=== PATIENT | male | born 1960 | race Caucasian/White ===

== ENCOUNTER 2020-01-25 14:17 | Outpatient (REF) | payer BC, SELFPAY ==
--- NOTE | 2020-01-25 14:19 | XR_ITS ---
EXAMINATION: BILATERAL KNEE. CLINICAL INFORMATION: Knee pain. COMPARISON: None TECHNIQUE: 2 views right knee and 2 views left knee. FINDINGS: RIGHT KNEE: There is minimal loss of tricompartment joint space with periarticular spurring. There is anterior superior patellar enthesophyte and periarticular spurring. No abnormal joint effusion seen. LEFT KNEE: There is mild loss of tricompartment joint space with moderate sized anterior suprapatellar calcified. There is mild suprapatellar joint effusion. No loose bodies or bony erosive changes seen. XR/XR knee LT 2V IMPRESSION: Mild early degenerative changes involving both knees. No visible acute fracture, dislocation or subluxation.
--- NOTE | 2020-01-25 14:23 | XR_ITS ---
EXAMINATION: BILATERAL KNEE. CLINICAL INFORMATION: Knee pain. COMPARISON: None TECHNIQUE: 2 views right knee and 2 views left knee. FINDINGS: RIGHT KNEE: There is minimal loss of tricompartment joint space with periarticular spurring. There is anterior superior patellar enthesophyte and periarticular spurring. No abnormal joint effusion seen. LEFT KNEE: There is mild loss of tricompartment joint space with moderate sized anterior suprapatellar calcified. There is mild suprapatellar joint effusion. No loose bodies or bony erosive changes seen. XR/XR knee RT 2V IMPRESSION: Mild early degenerative changes involving both knees. No visible acute fracture, dislocation or subluxation.
== END 2020-01-25 14:18 | disposition home or self-care (01) ==
LOC: HO.XRAY 14:17
PROVIDERS: PCP Internal Medicine; Visit Provider Internal Medicine
DX: M25.562 Pain in left knee (principal); M25.561 Pain in right knee
CPT/HCPCS: 73560

== ENCOUNTER → 2020-02-12 14:01 | Outpatient (BNVA) | payer BC, SELFPAY | PROVIDERS: PCP Internal Medicine; Referring Provider Internal Medicine; Visit Provider Internal Medicine Cardiovascular Disease | DX: I25.10 Atherosclerotic heart disease of native coronary artery without angina pectoris (principal); I49.3 Ventricular premature depolarization | CPT/HCPCS: 93005 ==

== ENCOUNTER 2020-04-25 07:33 | Outpatient (REF) | payer BC, SELFPAY ==
[2020-04-25 08:18] LABS: MANUAL DIFF FLAG NO
[2020-04-25 08:25] LABS: Basophils Percent Auto 0.7 % (0-2); Eosinophils Absolute Auto 0.1 X10*3/uL (0.0-0.4); Eosinophils Percent Auto 3.1 % (0-4); Hemoglobin 16.1 g/dl (14.0-18.0); Imm Gran Abs Auto 0.03 X10*3/uL (0.00-0.03); Imm Gran Pct Auto 0.7 % (0.0-0.4); Lymphocytes Absolute Auto 0.9 X10*3/uL (1.2-4.9); Lymphocytes Percent Auto 21.3 % (20-40); Mean Corpuscular HGB Conc 33.5 g/dl (31.0-36.0); Mean Corpuscular Hemoglobin 29.2 pg (27.0-33.0); Mean Corpuscular Volume 87.1 fL (80-98); Mean Platelet Volume 10.8 fL (9.4-12.4); Monocytes Absolute Auto 0.4 X10*3/uL (0.1-1.2); Monocytes Percent Auto 8.6 % (2-11); Neutrophils Absolute Auto 2.7 X10*3/uL (2.0-8.3); Neutrophils Percent Auto 65.6 % (45-73); Platelet Count 226 X10*3/uL (160-400); Red Blood Count 5.51 X10*6/uL (4.60-5.80); Red Cell Distribution Width 13.4 % (11.0-16.0); White Blood Count 4.2 X10*3/uL (4.8-10.8)
[2020-04-25 09:32] LABS: Alanine Aminotransferase 48 U/L (0-40); Albumin Level 4.5 g/dL (3.5-5.0); Alkaline Phosphatase 74 U/L (39-117); Anion Gap 9 (12-20); Aspartate Amino Transferase 30 U/L (5-37); Bilirubin Total 1.6 mg/dL (0.0-1.0); Blood Urea Nitrogen 23 mg/dL (9-16); Carbon Dioxide 29 mmol/L (22-29); Chloride 107 mmol/L (96-108); Cholesterol 187 mg/dL; Estimated Glomerular Filt Rate > 60; Glucose Fasting 105 mg/dL (60-99); HDL Cholesterol 42 mg/dL; LDL Cholesterol Calculated 133 mg/dl; Potassium 4.3 mmol/l (3.3-5.1); Sodium 141 mmol/L (135-145); Total Protein 6.8 g/dL (6.5-8.0); Triglycerides 60 mg/dL
[2020-04-25 09:43] LABS: Thyroid Stimulating Hormone 0.89 uIU/mL (0.32-4.0)
== END 2020-04-25 07:34 | disposition home or self-care (01) ==
LOC: HO.LAB 07:33
PROVIDERS: PCP Internal Medicine; Visit Provider Internal Medicine
DX: Z00.00 Encounter for general adult medical examination without abnormal findings (principal); E11.9 Type 2 diabetes mellitus without complications; E03.9 Hypothyroidism, unspecified
CPT/HCPCS: 36415; 80053; 80061; 84443; 85025

== ENCOUNTER → 2020-05-05 11:46 | Outpatient (BNVA) | payer BC, SELFPAY | PROVIDERS: PCP Internal Medicine; Visit Provider Nurse Practitioner Family | DX: R00.2 Palpitations (principal); R07.89 Other chest pain; I25.10 Atherosclerotic heart disease of native coronary artery without angina pectoris; I49.3 Ventricular premature depolarization; E78.5 Hyperlipidemia, unspecified; G47.33 Obstructive sleep apnea (adult) (pediatric) | CPT/HCPCS: 93005 ==

== ENCOUNTER → 2020-05-06 09:58 | Outpatient (REF) | payer BC, SELFPAY ==
--- NOTE | 2020-05-07 11:39 | ECG_ITS ---
Hook-up date: 2020-05-06 11:12:00 Duration: 25:46:00 Test Indications: PALPITATIONS Medications: 93476 QRS complexes 664 Ventricular ectopics which represent <1 % of total QRS comp. 1 Supraventricular ectopics which represent <1 % of total QRS comp. * Paced QRS complexs which represent % of total QRS comp. VENTRICULAR ECTOPY 547 Isolated 20 Bigeminal Cycles 51 Couplets 3 Runs 15 Beats in Runs 8 Beats LONGEST at 73 BPM at 19:46:06 2020-05-06 3 Beats FASTEST at 129 BPM at 04:20:15 2020-05-07 SUPRAVENTRICULAR ECTOPY 1 Isolated 0 Couplets 0 Runs 0 Beats in Runs * Beats LONGEST at * BPM at :: -- * Beats FASTEST at * BPM at :: -- HEART RATES 48 MIN at 05:03:45 2020-05-07 66 AVG 106 MAX at 15:49:43 2020-05-06 LONGEST RR 1.3280 secs at 22:46:36 2020-05-06 S-T LEVELS Channel 1 - 128 mm at 11:12:00 2020-05-06 - 128 mm at 11:12:00 2020-05-06 Channel 2 - 128 mm at 11:12:00 2020-05-06 - 128 mm at 11:12:00 2020-05-06 Channel 3 - 128 mm at 03:03:11 -- - 128 mm at 03:03:11 Basic rhythm Normal sinus rhythm No long pause or profound bradycardia Occasional Premature ventricular complexes One 3 beat ning of NSVT at 129 bpm No diary submitted Referred By: Mecca Bowser Overread By: TIFF SURESH MD
== END ==
LOC: HO.CARD 09:58
PROVIDERS: PCP Internal Medicine; Visit Provider Nurse Practitioner Family
DX: R00.2 Palpitations (principal)
CPT/HCPCS: 93226

== ENCOUNTER → 2020-05-07 09:00 | Outpatient (REF) | payer BC, SELFPAY | LOC: HO.CARD 09:00 | PROVIDERS: PCP Internal Medicine; Visit Provider Orthopaedic Surgery | DX: M22.2X1 Patellofemoral disorders, right knee (principal); M22.2X2 Patellofemoral disorders, left knee; R00.2 Palpitations; I25.10 Atherosclerotic heart disease of native coronary artery without angina pectoris; I49.3 Ventricular premature depolarization; E78.5 Hyperlipidemia, unspecified; G47.33 Obstructive sleep apnea (adult) (pediatric); Z87.891 Personal history of nicotine dependence; Z88.8 Allergy status to other drugs, medicaments and biological substances; Z98.890 Other specified postprocedural states | CPT/HCPCS: 20610; J1040 ==

== ENCOUNTER → 2020-06-04 12:32 | Outpatient (REF) | payer BC, SELFPAY ==
--- NOTE | 2020-06-04 12:36 | CA_ITS ---
Transthoracic Echocardiogram Patient (Last, First, Middle): Marcin Ferrari J Gender: Male Date of : 1960 Age: 59 Procedure Date: 06/04/2020 Procedure Type: Transthoracic Echocardiogram Location: OP Height: 182.88 cm Weight: 98.88 kg BSA: 2.21 m2 Heart Rate: bpm BP: 124 / 80 mmHg Roll Former: ELIZABETH Referring MD: Mecca Bowser [employer] [facility] Otolaryngology Physician: Jered Marcos MD Symptoms: R00.2 - Palpitations Study Quality: Good ECG Rhythm: Sinus Conclusions: - 1. Normal LV systolic function with impaired relaxation filling pattern 2. Mild aortic regurgitation, with slightly increased gradient across aortic valve without clear aortic stenosis 3. Normal RV systolic pressure 4. No pericardial effusion Findings Left Ventricle Normal left ventricular size, thickness, and systolic function. The visually estimated ejection fraction is between 60-65%. Spectral Doppler is indicative of an impaired relaxation filling pattern. E/E prime ratio is between 8 and 15 consistent with indeterminate filling pressures. Right Ventricle Normal right ventricular cavity size and systolic function. Atria The left atrium is likely dilated. There is lipomatous hypertrophy of the interatrial septum. There is no evidence of interatrial shunt. The right atrium is normal in size. Aortic Valve The aortic valve was not well visualized. There is mild aortic valve regurgitation. Mildly increased gradient across the aortic valve, I did suggestive of higher stroke volume or subaortic obstruction. There is no clear evidence of aortic stenosis Mitral Valve Likely normal mitral valve structure and function. There is trace mitral valve regurgitation. There is no mitral valve stenosis. Pulmonic Valve The pulmonic valve was not well visualized. Tricuspid Valve Likely normal tricuspid valve structure and function. There is mild tricuspid valve regurgitation. The right ventricular systolic pressure is normal. The right ventricular systolic pressure is 38 mmHg. There is no evidence of pulmonary hypertension. Great Vessels All visible segments of the aorta are normal in size. The pulmonary artery was not well visualized. Venous The inferior vena cava is normal in size and collapses greater than 50% with inspiration. Pericardium/Pleural There is no evidence of pericardial effusion. Prior Study Comparison No prior study available for comparison. Measurements 2D Linear Measurements IVSd: 1.28 0.6-0.9/0.6-1.0 cm LVIDd: 3.94 3.9-5.3/4.2-5.9 cm LVIDd Index: 1.78 2.4-3.2/2.2-3.1 cm/m2 LVIDs: 2.52 2.0-3.6 cm LVPWd: 1.27 0.7-1.1 cm Ao Root: 3.00 2.1-3.5 cm LA Diam: 4.00 2.7-3.8/3.0-4.0 cm LAIDs Index: 1.81 1.5-2.3 cm/m2 LV Mass: 220.68 67-162/88-224 g LV Mass Index: 99.86 43-95/49-115 g/m2 LVOT Diam: 2.20 3.0+(-)1.3 cm Mitral Valve MV Pk E: 0.99 MV PK A: 1.04 MV Decel Time: 250.00 E/A: 0.90 E'Lateral: 10.30 E'Medial: 8.61 E/E' Med: 11.40 E/E' Lat: 9.60 PHT: 73.00 MVA PHT: 3.01 Decel Evans: 3.94 Aortic Valve AoV Pk Henry: 2.11 AoV Mn Henry: 1.36 AoV VTI: 0.41 AoV Pk Grad: 18.00 Aov Mn Grad: 9.00 BHUPINDER Cont.VTI: 2.99 LVOT LVOT Pk Henry: 1.55 LVOT Mn Henry: 0.97 LVOT VTI: 0.32 LVOT Pk Grad: 10.00 LVOT Mn Grad: 5.00 LVOT Diam: 2.20 LVOT Area: 3.80 Diastolic Function MV Pk E: 0.99 MV Pk A: 1.04 E/A: 0.90 E'Medial: 8.61 E/E' Med: 11.40 E' Laterial: 10.30 E/E' Lat: 9.60 Tricuspid Valve TR Pk Henry: 2.95 TR Pk Grad: 35.00 RA Press: 3.00 RVSP: 38.00 Great Vessels Aorta Ao Root-2D: 3.00 2.0-3.7 cm Pulmonary Valve PV Pk Henry: 1.25 Peak PV Grad: 6.00 Updated in Other Vendor System with Status of Final Jered Marcos MD electronically signed on 06/04/2020 4:12:58 PM with status of Final
== END ==
LOC: HO.CARD 12:32
PROVIDERS: Visit Provider Nurse Practitioner Family
DX: I25.10 Atherosclerotic heart disease of native coronary artery without angina pectoris (principal); R00.2 Palpitations
CPT/HCPCS: 93306

== ENCOUNTER → 2020-06-16 15:02 | Outpatient (BNVA) | payer BC, SELFPAY | PROVIDERS: PCP Internal Medicine; Visit Provider Internal Medicine Cardiovascular Disease ==

== ENCOUNTER → 2020-11-17 08:51 | Outpatient (BNVA) | payer SELFPAY | PROVIDERS: PCP Internal Medicine; Visit Provider Physician Assistant | DX: Z02.79 Encounter for issue of other medical certificate (principal) ==

== ENCOUNTER 2020-12-15 07:45 | Outpatient (REF) | payer BC, SELFPAY ==
[2020-12-15 09:42] LABS: Alanine Aminotransferase 31 U/L (0-40); Aspartate Amino Transferase 19 U/L (5-37); Cholesterol 137 mg/dL; HDL Cholesterol 48 mg/dL; LDL Cholesterol Calculated 71 mg/dl; Triglycerides 91 mg/dL
[2020-12-16 17:16] LABS: Lyme Abs Screen <0.90 index
== END 2020-12-15 07:46 | disposition home or self-care (01) ==
LOC: HO.LAB 07:45
PROVIDERS: Nurse Practitioner Family; PCP Internal Medicine; Visit Provider Nurse Practitioner Family
DX: E78.5 Hyperlipidemia, unspecified (principal); L98.9 Disorder of the skin and subcutaneous tissue, unspecified
CPT/HCPCS: 36415; 80061; 84450; 84460; 86617; 86618

== ENCOUNTER → 2020-12-25 15:20 | Outpatient (BNVA) | payer BC, SELFPAY | PROVIDERS: PCP Internal Medicine; Referring Provider Internal Medicine; Visit Provider Internal Medicine Cardiovascular Disease ==

== ENCOUNTER → 2021-02-04 15:17 | Outpatient (REF) | payer BC, SELFPAY ==
--- NOTE | 2021-02-04 15:20 | HM_ITS ---
Total monitoring time 13 days in 21 hours. Underlying rhythm is sinus. Minimum heart rate 45/Min. Maximum 118/Min. Average 68/Min. No atrial fibrillation or flutter or AV blocks or pauses. Rare supraventricular ectopy with minimal burden; 15 supraventricular episodes, longest 16 beats. Rare ventricular ectopy; 2 morphologies; 285 couplets; 13 episodes of NSVT; longest 32 beats-monomorphic. Patient reported symptoms of palpitations/skipping correlated with supraventricular/ventricular ectopy/NSVT. [facility]
== END ==
LOC: HO.CARD 15:17
PROVIDERS: Visit Provider Internal Medicine Cardiovascular Disease
DX: R00.2 Palpitations (principal)
CPT/HCPCS: 93246

== ENCOUNTER → 2021-06-09 09:43 | Outpatient (REF) | payer BC, SELFPAY ==
--- NOTE | 2021-06-09 09:49 | CA_ITS ---
Acquisition Time: 2021-06-09 10:13:50 Total Exercise Time: 00:08:21 Test Indications: CP, PVC'S Medications: SEE CHART Protocol: SANDHYA Max HR: 130 BPM 80% of Pred: 162 BPM Max BP: 164/084 mmHG Max Work Load: 10.1 METS Exercise stress test with exercise 8 min 21 sec of Sandhya protocol, achieving 80% MPHR, 10.1 METs, with moderate shortness of breath, no chest discomfort, with isolated PVC, multifocal occurring at rest, one 3 beat NSVT in recovery, with normotensive response to exercise, with EKG changes meeting criteria for ischemia: [address] depression inferiorly and V5-V6 which improves quickly in recovery. In recovery he reported mild chest heaviness which he related to his exercise and sob. Test reviewed with Dr Marcos Will order a pharmacological nuclear stress test for further evaluation. Referred By: Jered Marcos Overread By: JULIETA SALAZAR
[2021-06-09 09:59] LABS: MANUAL DIFF FLAG NO
[2021-06-09 10:30] LABS: Basophils Percent Auto 0.4 % (0-2); Eosinophils Absolute Auto 0.2 X10*3/uL (0.0-0.4); Hematocrit 50.3 % (42.0-52.0); Hemoglobin 16.8 g/dl (14.0-18.0); Imm Gran Abs Auto 0.05 X10*3/uL (0.00-0.03); Imm Gran Pct Auto 1.1 % (0.0-0.4); Lymphocytes Absolute Auto 1.3 X10*3/uL (1.2-4.9); Lymphocytes Percent Auto 27.5 % (20-40); Mean Corpuscular HGB Conc 33.4 g/dl (31.0-36.0); Mean Corpuscular Hemoglobin 29.7 pg (27.0-33.0); Mean Corpuscular Volume 88.9 fL (80.0-98.0); Mean Platelet Volume 10.9 fL (9.4-12.4); Monocytes Absolute Auto 0.4 X10*3/uL (0.1-1.2); Monocytes Percent Auto 8.9 % (2-11); Neutrophils Absolute Auto 2.8 x10*3/uL (2.0-8.3); Neutrophils Percent Auto 58.1 % (45-73); Platelet Count 236 X10*3/uL (160-400); Red Blood Count 5.66 X10*6/uL (4.60-5.80); Red Cell Distribution Width 12.8 % (11.0-16.0); White Blood Count 4.7 X10*3/uL (4.8-10.8)
[2021-06-09 11:10] LABS: Alanine Aminotransferase 35 U/L (0-40); Albumin Level 4.6 g/dL (3.5-5.0); Alkaline Phosphatase 76 U/L (39-117); Anion Gap 13 (12-20); Aspartate Amino Transferase 23 U/L (5-37); Bilirubin Total 1.7 mg/dL (0.0-1.0); Blood Urea Nitrogen 16 mg/dL (9-16); Carbon Dioxide 27 mmol/L (22-29); Chloride 106 mmol/L (96-108); Cholesterol 155 mg/dL; Estimated Glomerular Filt Rate > 60; Glucose Fasting 108 mg/dL (60-99); HDL Cholesterol 40 mg/dL; LDL Cholesterol Calculated 96 mg/dl; Potassium 5.4 mmol/L (3.3-5.1); Sodium 141 mmol/L (135-145); Total Protein 7.1 g/dL (6.5-8.0); Triglycerides 96 mg/dL
[2021-06-09 11:13] LABS: Thyroid Stimulating Hormone 1.11 uIU/mL (0.32-4.0)
== END ==
LOC: HO.CARD 09:43
PROVIDERS: Absent Provider Internal Medicine; PCP Internal Medicine; Visit Provider Internal Medicine Cardiovascular Disease
DX: Z00.00 Encounter for general adult medical examination without abnormal findings (principal); Z13.0 Encounter for screening for diseases of the blood and blood-forming organs and certain disorders involving the immune mechanism; R00.2 Palpitations; M22.2X1 Patellofemoral disorders, right knee; M22.2X2 Patellofemoral disorders, left knee
CPT/HCPCS: 36415; 80053; 80061; 84443; 85025; 93017

== ENCOUNTER → 2021-06-29 15:06 | Outpatient (REF) | payer BC, SELFPAY ==
--- NOTE | 2021-06-29 15:09 | CA_ITS ---
Acquisition Time: 2021-06-29 15:25:23 Total Exercise Time: 00:08:54 Test Indications: Abnormal Treadmill Test Medications: METOPROLOL ATORVASTATIN TADALAFIL Protocol: SANDHYA Max HR: 139 BPM 85% of Pred: 162 BPM Max BP: 148/078 mmHG Max Work Load: 10.3 METS Exercise stress test with exercise 8 min 54 sec of Sandhya protocol, achieving 85%, 10.1 METs, with mild to moderate shortness of breath, knee pain, without chest discomfort, with isolated PVCs and 2 ventricular cuplets noted in recovery, with baseline EKG showing downsloping ST segements in leads III, aVF, V5-V6, then with exercise/ peak there is [address] depression lead II and the same downsloping ST segments as baseline: nondiagnostic for ischemia. same leads as baseline. Echo images obtain at rest and immediately post peak exercise. Definity contrast used. Test reviewed with Dr Marcos. STRESS ECHO : Technique : Images obtained at rest and immediately post exercise within 1 minute. Definity contrast was used to enhance endocardial definition. Images were obtained in multiple views and compared side to side. Findings : At rest images were of good quality. LV systolic function is normal with normal wall motion. Post exercise image interpretation was limited due to off axis views. On multiple different views there good augmentation of overall LV systolic function. There are no obvious regional wall motion abnormalities noted. Conclusion : Stress echo is negative for ischemia Referred By: Mecca Bowser Overread By: TIFF MARCOS MD
== END ==
LOC: HO.CARD 15:06
PROVIDERS: PCP Internal Medicine; Visit Provider Nurse Practitioner Family
DX: R94.30 Abnormal result of cardiovascular function study, unspecified (principal); I49.3 Ventricular premature depolarization
CPT/HCPCS: 93350; Q9957

== ENCOUNTER 2021-09-18 10:51 | Outpatient (REF) | payer BC, SELFPAY ==
--- NOTE | ~2021-09-18 | XR_ITS ---
EXAMINATION: XR KNEE, LEFT CLINICAL INFORMATION: Knee pain COMPARISON: Radiographs left knee 01/25/2020 TECHNIQUE: Four views of the left knee. FINDINGS: No fracture, dislocation, destructive process, or suprapatellar effusion. No medial or lateral weightbearing compartment joint narrowing or erosive change or chondrocalcinosis. There is mild narrowing lateral patellofemoral joint. Spurring is again seen in the quadriceps insertion patella. There is some benign chronic periosteal ossification lower posterior femoral shaft approximately 2 cm in length similar to prior exam. No periostitis. XR/XR knee LT 4V IMPRESSION: -Mild narrowing lateral patellofemoral joint. -Spurring at quadriceps insertion patella.
== END 2021-09-18 10:52 | disposition home or self-care (01) ==
LOC: HO.XRAY 10:51
PROVIDERS: PCP Internal Medicine; Visit Provider Internal Medicine
DX: M25.562 Pain in left knee (principal)
CPT/HCPCS: 73564

== ENCOUNTER → 2021-10-12 10:28 | Outpatient (BNVA) | payer SELFPAY | PROVIDERS: PCP Internal Medicine; Visit Provider Physician Assistant Medical | DX: Z02.79 Encounter for issue of other medical certificate (principal) ==

== ENCOUNTER 2021-10-19 08:08 | Outpatient (REF) | payer SELFPAY | END 2021-10-19 08:09 | disposition home or self-care (01) | LOC: HO.HOSX 08:08 | PROVIDERS: Visit Provider Physician Assistant | DX: Z13.89 Encounter for screening for other disorder (principal) ==

== ENCOUNTER 2021-10-20 12:56 | Outpatient (REF) | payer OTHER, SELFPAY ==
--- NOTE | ~2021-10-20 | XR_ITS ---
EXAMINATION: XR KNEE AP STANDING CLINICAL INFORMATION: Knee pain COMPARISON: 09/18/2021 TECHNIQUE: AP bilateral standing view of the knees was obtained. FINDINGS: Left knee: No fracture or subluxation. Medial and lateral compartmental joint spaces are maintained. The soft tissues are unremarkable. Right knee: No fracture or subluxation. Mild narrowing at the medial compartment joint space. The soft tissues are unremarkable. XR/XR knee standing BI IMPRESSION: Unremarkable appearance of the left knee on this single view. Mild medial compartment narrowing of the right knee.
== END 2021-10-20 12:57 | disposition home or self-care (01) ==
LOC: HO.HOSX 12:56
PROVIDERS: Visit Provider Physician Assistant
DX: M25.561 Pain in right knee (principal); M25.562 Pain in left knee
CPT/HCPCS: 73565

== ENCOUNTER 2021-11-10 17:53 | Outpatient (REF) | payer OTHER, SELFPAY ==
--- NOTE | ~2021-11-10 | MR_ITS ---
EXAMINATION: MR KNEE WITHOUT CONTRAST, LEFT CLINICAL INFORMATION: Intermittent left knee pain. Evaluate for meniscal tear. COMPARISON: None TECHNIQUE: MRI of the knee without contrast was performed using routine sequences on a high-field scanner. FINDINGS: MENISCI: Medial Meniscus: Complete radial tear of the posterior meniscal body measuring 0.6 cm in AP dimension. Oblique inner margin tearing extending through the posterior horn. Lateral Meniscus: Inner margin fraying/tearing of the meniscal body and posterior root. LIGAMENTS: Cruciate: Intact Collateral: Intact EXTENSOR MECHANISM: Intact ARTICULAR CARTILAGE/BONE: Patellofemoral Compartment: Full thickness articular cartilage fissuring at the patellar median ridge with underlying subchondral cystic change. Central trochlear articular cartilage signal heterogeneity. Tiny marginal osteophytes. Medial Compartment: Intact articular cartilage. Marrow edema within the medial tibial plateau consistent with an osseous contusion. No associated fracture line. Mild periosteal edema. Lateral Compartment: Articular cartilage signal heterogeneity and surface irregularity with tiny marginal osteophytes. JOINT FLUID AND BURSAE: Small joint effusion. MR/MR knee LT wo con IMPRESSION: 1. Complete radial tear of the medial meniscus posterior body with oblique inner margin tearing extending to the posterior horn. 2. Inner margin fraying/tearing of the lateral meniscal body and posterior root. 3. Mild osseous contusion within the medial tibial plateau. No associated fracture line. 4. Mild patellofemoral and lateral compartment osteoarthritis. Small joint effusion.
== END 2021-11-10 17:54 | disposition home or self-care (01) ==
LOC: HO.MRI 17:53
PROVIDERS: Visit Provider Physician Assistant
DX: S83.242A Other tear of medial meniscus, current injury, left knee, initial encounter (principal)
CPT/HCPCS: 73721

== ENCOUNTER 2021-12-09 10:03 | Day surgery (SDC) | payer OTHER, SELFPAY ==
[2021-12-03 14:45] VITALS: BMI 29.8
[2021-12-09] VITALS (11 sets, daily range): BP systolic 90–151; BP diastolic 50–78; PULSE 59–78; RESP 14–30; TEMP 36.1–36.5; O2SAT 96–99
[2021-12-09] MEDS: Lactated Ringers 1,000 ML 50 ML IVCONT (10:32)
--- NOTE | 2021-12-09 11:15 | MHC.SHP ---
Pre-Procedural Eval Section A Date of Service: 12/09/21 The patient is an INPATIENT: No Changes since office visit: Yes Patient answered all questions; No Cold of Flu in the past 2 weeks, No New Medical Problems and No Changes in Medication The History & Physical has been completed within 30 days and I have reviewed it.: Yes Section B Chief Complaint: Complex tear of medial meniscus, current injury, Allergies: Allergies Allergy/AdvReac Type Severity Reaction Status Date / Time naproxen [Aleve] Allergy Unknown itchiness Verified 12/09/21 10:19 Plan I have reviewed the history and physical and performed a pertinent physical examination on my patient. No changes have occurred unless specified.
--- NOTE | 2021-12-09 12:17 | HO.ANESPROP2 ---
HPI - Anesthesia Eval Consult details Narrative: 60 M for left knee arthroscopy stress test unremarkable for ischemia FRANCHESCA PMF Active Problems Active Problems: All Active Problems (Updated 11/11/21 @ 10:14 by José Unger MD) Acute meniscal tear of left knee (Acute) Tear of medial meniscus of left knee (Acute) Knee pain (Acute) Ventricular ectopy (Acute) Abnormal exercise tolerance test (Acute) Obesity (Acute) Hypertension (Acute) Skin lesion (Acute) Cluster headache (Acute) Patellofemoral pain syndrome of both knees (Acute) Chest discomfort (Acute) Palpitations (Acute) Physical exam (Acute) CAD (coronary artery disease) (Acute) PVC (premature ventricular contraction) (Acute) Hyperlipidemia (Acute) FRANCHESCA (obstructive sleep apnea) (Acute) Nail fungus (Acute) Knee pain (Acute) Past Medical History Medical History CAD (coronary artery disease) Cluster headache Hyperlipidemia Hypertension Obesity FRANCHESCA (obstructive sleep apnea) PVC (premature ventricular contraction) Skin lesion Functional capacity: independent ambulation Family History Family History Father Myocardial infarction Substance abuse Mother No problems noted. Family history of problems with anesthesia: No Surgical History Surgical History History of laminectomy History of removal of cyst Hx of cardiac catheterization History of Problems with Anesthesia: No Social History Social History Housing: House Alcohol intake: never Patient Tobacco Use Status: Former Tobacco user e-Cigarette/Vaping Use: Never Used Second Hand Smoke Exposure: No service: No Current occupational status: employed Cognitive needs: No Hearing needs: No Vision needs: No Meds Allergies Allergy/AdvReac Type Severity Reaction Status Date / Time naproxen [Aleve] Allergy Unknown itchiness Verified 12/09/21 10:19 Active Medications: Current Medications Lactated Ringer's (Lr) 1,000 mls @ 50 mls/hr IVCONT .Q20H OJ Last Admin: 12/09/21 10:32 Dose: 50 mls/hr Exam Exam Date and Time: December 09, 2021 1217 Height,Weight and Vital Signs: Height 6 ft Weight 99.79 kg Last Vital Signs Temp 97 F 12/09/21 10:08 Pulse 78 12/09/21 10:08 Resp 18 12/09/21 10:08 BP 151/78 H 12/09/21 10:08 Pulse Ox 96 12/09/21 10:08 O2 Del Method 12/09/21 10:08 Airway Mallampati Class: III TM Dist: >3cm Neck ROM: Full Loose/Missing/Broken Teeth: Yes (Chipped teeth) Heart: S1,S2 Lungs: b/l breath sounds Assessment and Plan Assessment Anesthesia Assessment: Anesthesia Plan Discussed and Chart Reviewed Final Anesthetic Review Family History of Problems with Anesthesia: No History of Problems with Anesthesia: No NPO: Yes ASA Class: III Final Preanesthetic Review: Meds/Allgs Chart Reviewed, Consent Obtained/Reviewed and Anes Risks/Benef Reviewed Patient Risk: Intermediate Procedure Risk: Intermediate Anesthetic Plan Anesthetic Plan: GA Disposition: Standard PACU
--- NOTE | 2021-12-09 13:13 | P.OP_ITS ---
Operative Note Operative Note Date of Service: 12/09/21 Narrative: Date of Service: 12/09/21 Pre-op diagnosis: Left knee medial meniscus tear Post-op diagnosis: same Procedure: Left knee with partial medial meniscectomy Surgeon: Ray Stubbs MD Anesthesia: GETA and local Was an Fruit Thinner Machine Operator used for this Procedure?: No Estimated blood loss (mL): 5 Tourniquet time (min): 15 IV fluids (mL): 500 Pathology: none sent Condition: stable Disposition: PACU Procedure in detail: Patient was brought to the operating room placed supine on the arthroscopic table and prepped and draped in standard sterile fashion. A time-out was called to identify proper site proper procedure proper surgeon and IV antibiotics per weight were administered. I began by exsanguinating the limb and insufflating tourniquet to 300 mm Hg. Then made a standard anterolateral stab incision. The knee was insufflated with water and 30 degree arthroscope was placed. There was grade 1 fibrillations of the patella but overall suprapatellar pouch was plane and the gutters were clean. I descended into the medial compartment where I made my medial portal under direct visualization. There was obvious of complex tear of the body and posterior horn of the medial meniscus. The root was intact and there was grade 1 changes with some scattered grade 2 changes throughout the medial tibial plateau. I used a combination of biter shaver and cautery to remove unstable portions of the meniscus. Appoximatelly 40% meniscal volume was removed. Once I was happy with this the ACL was examined and found to be intact and the lateral compartment also was without the need for intervention. I then removed all instrumentation and closed the portals with skin glue. 25 mL of 2% Marcaine with epinephrine was injected into the joint and the surrounding soft tissues. Patient was then placed in sterile dressing extubated brought recovery room stable condition. There were no known complications.
[2021-12-09] MEDS: Acetaminophen 325 MG TABLET 650 MG PO (13:38)
[2021-12-09] MEDS: fentaNYL citrate/PF 100 MCG/2 ML VIAL 25 MCG IVPUSH (13:45)
[2021-12-09] MEDS: HYDROmorphone HCl 0.5 MG/0.5 ML SYRINGE 0.25 MG IVPUSH (13:58)
[2021-12-09] MEDS: oxyCODONE HCl Immed Release 5 MG TABLET PO (14:13)
== END 2021-12-09 15:37 | disposition home or self-care (01) ==
PROVIDERS: PCP Internal Medicine; Visit Provider Orthopaedic Surgery
PROC: (CPT 29870; principal; 2021-12-09 12:50)
DX: S83.232A Complex tear of medial meniscus, current injury, left knee, initial encounter (principal); R20.8 Other disturbances of skin sensation; M62.562 Muscle wasting and atrophy, not elsewhere classified, left lower leg; M96.1 Postlaminectomy syndrome, not elsewhere classified; W18.39XA Other fall on same level, initial encounter; Y93.01 Activity, walking, marching and hiking; Y92.89 Other specified places as the place of occurrence of the external cause; Y99.8 Other external cause status; Z88.8 Allergy status to other drugs, medicaments and biological substances; I10 Essential (primary) hypertension; I25.10 Atherosclerotic heart disease of native coronary artery without angina pectoris; I49.3 Ventricular premature depolarization; G47.33 Obstructive sleep apnea (adult) (pediatric); E78.5 Hyperlipidemia, unspecified; G44.009 Cluster headache syndrome, unspecified, not intractable; Z87.891 Personal history of nicotine dependence
CPT/HCPCS: 29881; J0690; J1100; J1170; J2250; J2405; J2795; J3010

== ENCOUNTER 2022-03-15 13:22 | Outpatient (REF) | payer OTHER, SELFPAY ==
[2022-03-23 14:59] LABS: Testosterone, Free 50.5 pg/mL (35.0-155.0); Testosterone, Total 339 ng/dL (250-1100)
== END 2022-03-15 13:23 | disposition home or self-care (01) ==
LOC: HO.LAB 13:22
PROVIDERS: PCP Internal Medicine; Visit Provider Internal Medicine
DX: R68.82 Decreased libido (principal)
CPT/HCPCS: 36415; 84402; 84403

== ENCOUNTER → 2022-08-16 15:19 | Outpatient (BNVA) | payer OTHER, SELFPAY | PROVIDERS: PCP Internal Medicine; Visit Provider Nurse Practitioner Family | DX: R00.2 Palpitations (principal) | CPT/HCPCS: 93005 ==

== ENCOUNTER → 2022-08-24 14:48 | Outpatient (REF) | payer OTHER, SELFPAY ==
--- NOTE | 2022-08-24 14:55 | HM_ITS ---
Conclusion: 1. Patient was monitored for total period of 3 days 2. Baseline was normal sinus with average heart of 66 beats per minute 3. No significant pauses noted 4. Frequent PVCs noted with total burden of 1.25%, all isolated 5. No patient reported symptoms MTDD
== END ==
LOC: HO.CARD 14:48
PROVIDERS: PCP Internal Medicine; Visit Provider Nurse Practitioner Family
DX: I49.3 Ventricular premature depolarization (principal); R00.2 Palpitations; I49.1 Atrial premature depolarization
CPT/HCPCS: 93242

== ENCOUNTER → 2022-09-21 15:45 | Outpatient (REF) | payer OTHER, SELFPAY ==
--- NOTE | 2022-09-21 15:47 | CA_ITS ---
Transthoracic Echocardiogram Patient (Last, First, Middle): Marcin Ferrari J Gender: Male Date of : 1960 Age: 61 Procedure Date: 09/21/2022 Procedure Type: Transthoracic Echocardiogram Location: OP Height: 182.88 cm Weight: 103.42 kg BSA: 2.25 m2 Heart Rate: bpm BP: 130 / 72 mmHg Proofer: ALAN Referring MD: Mecca Bowser SHOP BLACKSMITHBrea Symptoms: I49.3 - Ventricular premature depolarization Study Quality: Fair ECG Rhythm: Sinus Conclusions: - The left ventricular systolic function is normal. The calculated ejection fraction is 65% by biplane method. - The inferoseptal wall, the basal inferior, and basal anteroseptal segments are hypokinetic. - There is mild aortic valve regurgitation. Findings Left Ventricle Normal left ventricular cavity size. There is mildly increased left ventricular wall thickness. The left ventricular systolic function is normal. The calculated ejection fraction is 65% by biplane method. There is no evidence of regional wall motion abnormalities. Diastolic function is normal for age. LV peak GLS -18%. Wall Motion Rest Echo Findings The inferoseptal wall, the basal inferior, and basal anteroseptal segments are hypokinetic. Atria The left atrium is mildly dilated. The right atrium is normal in size. Aortic Valve There is a normal trileaflet aortic valve. There is no aortic valve stenosis. There is mild aortic valve regurgitation. Mitral Valve The mitral valve appears normal. There is trace mitral valve regurgitation. There is no mitral valve stenosis. Pulmonic Valve The pulmonic valve is likely normal. Tricuspid Valve There is mild tricuspid valve regurgitation. There is no evidence of pulmonary hypertension. Great Vessels The asc aorta is normal in size. Venous The inferior vena cava is normal in size and collapses greater than 50% with inspiration. Pericardium/Pleural There is no evidence of pericardial effusion. Prior Study Comparison Changes noted compared to prior study dated: 06/04/2020. see comment on wall motion. Measurements 2D Linear Measurements IVSd: 1.26 0.6-0.9/0.6-1.0 cm LVIDd: 4.72 3.9-5.3/4.2-5.9 cm LVIDd Index: 2.10 2.4-3.2/2.2-3.1 cm/m2 LVIDs: 3.07 2.0-3.6 cm LVPWd: 1.19 0.7-1.1 cm LA Diam: 3.30 2.7-3.8/3.0-4.0 cm LAIDs Index: 1.47 1.5-2.3 cm/m2 LV Mass: 273.99 67-162/88-224 g LV Mass Index: 121.77 43-95/49-115 g/m2 LVOT Diam: 2.10 3.0+(-)1.3 cm 2D Systolic Function EF 4C: 65.50 >55% EF 2C: 64.80 >55% EF BiP: 65.00 >55% Mitral Valve MV Pk E: 0.87 MV PK A: 0.96 MV Decel Time: 318.00 E/A: 0.90 E'Lateral: 9.90 E'Medial: 6.20 E/E' Med: 14.00 E/E' Lat: 8.70 PHT: 93.00 MVA PHT: 2.37 Decel Frontier: 2.72 Aortic Valve AoV Pk Henry: 1.96 AoV Mn Henry: 1.31 AoV VTI: 0.41 AoV Pk Grad: 15.00 Aov Mn Grad: 8.00 BHUPINDER Cont.VTI: 2.60 AI Pk Henry: 4.06 AI Frontier: 1.86 LVOT LVOT Pk Henry: 1.41 LVOT Mn Henry: 0.86 LVOT VTI: 0.31 LVOT Pk Grad: 8.00 LVOT Mn Grad: 4.00 LVOT Diam: 2.10 LVOT Area: 3.46 Diastolic Function MV Pk E: 0.87 MV Pk A: 0.96 E/A: 0.90 E'Medial: 6.20 E/E' Med: 14.00 E' Laterial: 9.90 E/E' Lat: 8.70 Right Ventricle TAPSE (mm): 23.30 TVS' Henry: 14.00 Tricuspid Valve TR Pk Henry: 2.67 TR Pk Grad: 29.00 RA Press: 3.00 RVSP: 32.00 Great Vessels Aorta Sinus of Valsalva: 3.43 2.0-3.[address] Ridge: 2.66 1.7-3.4 cm Ao Asc: 3.10 2.1-3.4 cm Updated in Other Vendor System with Status of Final Sandeep Zacarias MD electronically signed on 09/22/2022 9:44:28 AM with status of Final
== END ==
LOC: HO.CARD 15:45
PROVIDERS: PCP Internal Medicine; Visit Provider Nurse Practitioner Family
DX: I49.3 Ventricular premature depolarization (principal)
CPT/HCPCS: 93306; 93356

== ENCOUNTER → 2022-10-11 14:37 | Outpatient (BNVA) | payer SELFPAY | PROVIDERS: PCP Internal Medicine; Visit Provider Internal Medicine | DX: Z02.79 Encounter for issue of other medical certificate (principal) ==

== ENCOUNTER → 2022-10-18 07:55 | Outpatient (REF) | payer OTHER, SELFPAY ==
--- NOTE | ~2022-10-18 | NM_ITS ---
EXERCISE MYOCARDIAL PERFUSION STUDY INDICATION: PVCs, assess for coronary disease, ischemia TECHNIQUE: The patient was brought in for an exercise perfusion study on 10/18/2022. Patient performed exercise as per Oren protocol and was injected 25 mCi of sestamibi once target heart rate was achieved. Images were obtained using the SPECT gamma camera interlaced with the gating device. Images were obtained in supine position. Resting perfusion study was performed on 10/19/2022. Patient was administered 25 mCi of sestamibi intravenously at rest. Images were then obtained in supine position. Images were processed with the software and compared side to side in short axis, horizontal long axis and vertical long axis views. Total DLP 118mGy-cm. FINDINGS: Raw images were reviewed. The stress perfusion study showed mildly diminished tracer uptake in the basal part of inferior wall. There is improvement with CT attenuation correction suggestive of diaphragmatic attenuation artifact. There is also depressed tracer uptake in the distal part of anterior wall. There is improvement with CT attenuation suggestive of soft tissue attenuation artifact. The gated study shows normal LV systolic function with calculated LVEF of 64%. LV cavity is normal in size. The gated study shows basal inferior hypokinesis. Resting study shows mildly diminished tracer uptake along the basal inferior wall. There is improvement with CT attenuation correction suggestive of soft tissue attenuation artifact. Gating at rest reveals ejection fraction at 63%. Basal inferior hypokinesis. The findings are consistent with fixed basal inferior defect. Mostly reversible distal anterior defect. NM/NM cardiolite stress test IMPRESSION: 1. Myocardial perfusion imaging study shows fixed basal inferior defect which could be from prior infarct. Cannot exclude diaphragmatic attenuation artifact. Probable ischemia in the distal anterior wall. 2. Gated LVEF is 64% during stress and 63% during rest. 3. Transient ischemic dilatation not present. EKG component of the test reported separately.
--- NOTE | 2022-10-18 07:58 | CA_ITS ---
Acquisition Time: 2022-10-18 07:59:22 Total Exercise Time: 00:11:00 Test Indications: ABN ECHO Medications: METOPROLOL Protocol: OREN Max HR: 133 BPM 82% of Pred: 161 BPM Max BP: 184/078 mmHG Max Work Load: 10.6 METS Exercise stress test exercise 11 min of Oren protocol achieving 82% MPHR, with 3/10 chest heaviness, with mild SOB, with isolated PVCs, with normotensive response to exercise, with downsloping ST depressions in V5-V6 . Nuclear images pending. Chest resolved with rest. Test reviewed with Hemant Waldron. Referred By: Mecca Bowser Overread By: ALDA DAVEY
== END ==
LOC: HO.CARD 07:55
PROVIDERS: PCP Internal Medicine; Visit Provider Nurse Practitioner Family
DX: I25.10 Atherosclerotic heart disease of native coronary artery without angina pectoris (principal); R93.1 Abnormal findings on diagnostic imaging of heart and coronary circulation
CPT/HCPCS: 78452; 93017; A9500

== ENCOUNTER → 2022-10-18 08:02 | Outpatient (BNV) | payer OTHER, SELFPAY | PROVIDERS: PCP Internal Medicine; Visit Provider Internal Medicine | DX: R07.89 Other chest pain (principal) | CPT/HCPCS: 78452; 93016; 93018 ==

== ENCOUNTER → 2022-11-16 15:08 | Outpatient (BNVA) | payer OTHER, SELFPAY | PROVIDERS: PCP Internal Medicine; Referring Provider Internal Medicine; Visit Provider Internal Medicine Cardiovascular Disease ==

== ENCOUNTER 2023-05-23 13:35 | Outpatient (AMB) | payer OTHER, SELFPAY ==
--- NOTE | 2023-05-23 13:36 | MHC.PC.OV ---
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 Accompanied by: Self / Same As Patient Allergies naproxen [Aleve] Allergy (Unknown, Verified 05/23/23 13:37) itchiness Tobacco use date assessed: 05/23/23 Dental Screening Dental Screen Date: 05/23/23 Did you have a dental visit in the last 12 months?: Yes Did you have a dental problem in the last 6 months where you did not have access to dental care?: No Was dental information given to patient?: Patient has dentist HPI Annual Exam HPI Details HTN on Rx; has right shoulder pain for a few weeks; no injury PFSH Medical History CAD (coronary artery disease) Cluster headache Hyperlipidemia Hypertension Obesity FRANCHESCA (obstructive sleep apnea) PVC (premature ventricular contraction) Skin lesion Surgical History Hx of cardiac catheterization History of laminectomy History of removal of cyst Family History Father Myocardial infarction Substance abuse Mother No problems noted. Social History Housing: House Alcohol intake: never Patient Tobacco Use Status: Never used Tobacco e-Cigarette/Vaping Use: Never Used Second Hand Smoke Exposure: No service: No Current occupational status: employed Cognitive needs: No Hearing needs: No Vision needs: No Questionnaire PHQ-9 Over the last 2 weeks, how often have you been bothered by any of the following problems? 1. Little interest or pleasure in doing things: not at all 2. Feeling down, depressed, or hopeless: not at all 3. Trouble falling or staying asleep, or sleeping too much: not at all 4. Feeling tired or having little energy: not at all 5. Poor appetite or overeating: not at all 6. Feeling bad about yourself - or that you are a failure or have let yourself or your family down: not at all 7. Trouble concentrating on things, such as reading the newspaper or watching television: not at all 8. Moving or speaking so slowly that other people could have noticed. Or the opposite - being so fidgety or restless that you have been moving around a lot more than usual: not at all 9. Thoughts that you would be better off or of hurting yourself in some way: not at all Total score: 0 Depression Screening Interpretation: Negative Depression Screening Done: Yes 17640 - PHQ-9 Billing: Yes Source: Developed by Drs. Jorgito Rodgers, Liliana Medeiros, Manolo Lyn and colleagues, with an educational diego from [employer]. Thrive Questionnaire Date Thrive assessed: 05/23/23 I am a: Patient What is your living situation today?: I have a steady place to live Within the past 12 months, did the food you bought not last and you didn't have the money to get more?: Never true Within the past 12 months, did you worry whether your food would run out before you got money to buy more?: Never true Do you have trouble paying for medicines?: No Do you have trouble getting transportation to medical appointments?: No Do you have trouble paying your heating and electricity bill?: No Do you have trouble taking care of your child, family member or friend?: No Do you have trouble with day-to-day activities such as bathing, preparing meals, shopping, managing finances, etc.?: No Are you currently unemployed and looking for a job?: No Are you interested in more education?: No Please select the resources that you would like help with: None THRIVE Score: 0 AUDIT C Alcohol Use Questionnaire (AUDIT-C) 1. How often do you have a drink containing alcohol?: Never 3. How often do you have six or more drinks on one occasion?: Never Total Score: 0 Score Reviewed/Action Taken: Yes NAZARIO-7 AMB Questionnaire NAZARIO-7 Date NAZARIO - 7 assessed: 05/23/23 Feeling nervous, anxious, or on edge: 0 = Not at all Not being able to stop or control worryin = Not at all Worrying too much about different things: 0 = Not at all Trouble relaxin = Not at all Being so restless that it is hard to sit still: 0 = Not at all Becoming easily annoyed or irritable: 0 = Not at all Feeling afraid as if something awful might happen: 0 = Not at all Total NAZARIO-7 score (0-4 normal; 5-9 mild; 10-14 moderate; 15-21 severe): 0 Source: Developed by Drs. Jorgito Rodgers, Liliana Medeiros, Manolo Lyn and colleagues, with an educational diego from [employer]. Review of Systems Const Denies chills, Denies fatigue, Denies headache(s) and Denies weight loss Eyes Denies change in vision, Denies diplopia and Denies eye pain ENT Denies vertigo, Denies dizziness, Denies headache(s) and Denies nasal discharge Card Denies chest pain, Denies rapid heart rate and Denies dyspnea on exertion Resp Denies chest congestion, Denies cough, Denies pain with cough and Denies dyspnea on exertion GI Denies abdominal pain, Denies hematochezia and Denies change in bowel habits Musc Denies myalgias, Denies arthralgias and Denies joint swelling Skin/Breast Denies lesions and Denies unusual bruising Neuro Denies vertigo, Denies dizziness, Denies headache(s) and Denies focal weakness Endo Denies fatigue Physical exam (Primary Care) Vital Signs: Last Vital Signs Pulse 76 05/23/23 13:37 BP 140/80 H 05/23/23 13:37 Pulse Ox 99 05/23/23 13:37 Oxygen Delivery Method Room Air 05/23/23 13:37 BMI result Body Mass Index 30.9 Tobacco/Smoking Status: Tobacco use Status Tobacco use date assessed 05/23/23 05/23/23 13:38 Patient Tobacco Use Status Never used Tobacco 05/23/23 13:38 e-Cigarette/Vaping Use Never Used 05/23/23 13:38 PHQ-9: PHQ-9 Score PHQ-9: Total score 0 05/23/23 14:07 Depression Screening Interpretation: Negative Thrive Assessment: Date of Thrive Assessment Date Thrive assessed 05/23/23 05/23/23 13:38 Const General: cooperative, healthy appearing and no acute distress Orientation/consciousness: oriented to person, oriented to place and oriented to time HENMT Head: Yes normal to inspection, Yes normocephalic and Yes atraumatic Mouth: Normal oral and palatal mucosa present and tongue normal Throat: Yes posterior oropharynx normal and Yes uvula midline Eyes General: appearance normal, both eyes and all related structures Neck Neck: Yes normal visual inspection, Yes full ROM and Yes no lymphadenopathy Thyroid: Thyroid normal Carotids: normal carotid upstroke Chest Chest palpation & inspection: normal inspection of the chest Resp Effort & Inspection: normal respiratory effort and able to speak in complete sentences Auscultation: clear to auscultation bilaterally Cardio Jugular venous distension: no JVD Palpation: normal PMI Rate: regular rate Rhythm: regular rhythm Heart sounds: S1 normal heart sound present and S2 normal heart sound present GI Inspection: Yes normal to inspection Palpation (GI): Soft to palpation and No hepatosplenomegaly present Auscultation: normal bowel sounds General: Yes no CVA tenderness Back/Spine/Pelvis Back: no CVA tenderness Skin General skin exam: no rashes or lesions noted Neuro General: oriented to person, oriented to place and oriented to time Extrem General: Yes normal to inspection and Yes full ROM Assessment and Plan Assessment & Plan (1) Physical exam: Code(s): Z00.00 - Encounter for general adult medical examination without abnormal findings Plan: do labs (2) Hypertension: Code(s): I10 - Essential (primary) hypertension Plan: stable; same rx Orders: Orders Lipid Panel 05/23/23 E78.5 - Hyperlipidemia, unspecified Comprehensive [place]. Panel Fast 05/23/23 N28.9 - Disorder of kidney and ureter, unspecified PT Evaluation and Treatment 05/23/23 M25.511 - Pain in right shoulder Complete Blood Count Auto Diff 05/23/23 D64.9 - Anemia, unspecified XR cervical spine 2V 05/23/23 M54.2 - Cervicalgia XR shoulder RT min 2V 05/23/23 M25.519 - Pain in unspecified shoulder Referrals Gastroenterology Referral Z12.11 - Encounter for screening for malignant neoplasm of colon Coding Level of Care Code Est Pt Prev Care 40-64y([id number]) Diagnoses Physical exam Z00.00 Hypertension I10
[2023-05-23 13:37] VITALS: BP 140/80; PULSE 76; O2SAT 99; BMI 30.9
== END 2023-05-23 14:12 | disposition home or self-care (01) ==
PROVIDERS: Visit Provider Internal Medicine
DX: Z00.00 Encounter for general adult medical examination without abnormal findings (principal); I10 Essential (primary) hypertension
CPT/HCPCS: 99396

== ENCOUNTER 2023-05-25 10:48 | Outpatient (REF) | payer OTHER, SELFPAY ==
--- NOTE | ~2023-05-25 | XR_ITS ---
EXAMINATION: XR CERVICAL SPINE CLINICAL INFORMATION: Cervicalgia. COMPARISON: None available. TECHNIQUE: 3 views of the cervical spine were obtained. FINDINGS: Degenerative changes are present in the cervical spine most marked from C3 through C7. Vertebral body heights are well maintained. Spondylitic endplate changes are present with osteophytes most marked at C4 and C6. No prevertebral soft tissue swelling, fractures or subluxations seen. Tiny calcifications seen in the posterior left neck of no clinical significance. XR/XR cervical spine 2V IMPRESSION: Degenerative changes in the cervical spine as described above.
--- NOTE | ~2023-05-25 | XR_ITS ---
EXAMINATION: XR SHOULDER, RIGHT CLINICAL INFORMATION: Pain under arm. COMPARISON: None available. TECHNIQUE: 3 view of the right shoulder. FINDINGS: Small area of calcification is seen in the region of the supraspinatus tendon. Degenerative changes are present at the AC joint. No other abnormality is seen. In the area of the patient's discomfort beneath the scapula, no abnormality is detected. XR/XR shoulder RT min 2V IMPRESSION: Calcification in the region of the supraspinatus tendon and degenerative changes AC joint.
[2023-05-25 10:57] LABS: MANUAL DIFF FLAG NO
[2023-05-25 11:28] LABS: Basophils Percent Auto 0.6 % (0-2); Eosinophils Absolute Auto 0.2 X10*3/uL (0.0-0.4); Eosinophils Percent Auto 4.2 % (0-4); Hematocrit 45.8 % (42.0-52.0); Hemoglobin 15.5 g/dl (14.0-18.0); Imm Gran Abs Auto 0.05 X10*3/uL (0.00-0.03); Lymphocytes Absolute Auto 1.2 X10*3/uL (1.2-4.9); Lymphocytes Percent Auto 24.4 % (20-40); Mean Corpuscular HGB Conc 33.8 g/dl (31.0-36.0); Mean Corpuscular Volume 85.8 fL (80.0-98.0); Mean Platelet Volume 10.6 fL (9.4-12.4); Monocytes Absolute Auto 0.6 X10*3/uL (0.1-1.2); Monocytes Percent Auto 11.3 % (2-11); Neutrophils Percent Auto 58.5 % (45-73); Platelet Count 214 X10*3/uL (160-400); Red Blood Count 5.34 X10*6/uL (4.60-5.80); Red Cell Distribution Width 13.4 % (11.0-16.0); White Blood Count 5.1 X10*3/uL (4.8-10.8)
[2023-05-25 12:14] LABS: Alanine Aminotransferase 23 U/L (0-40); Albumin Level 4.4 g/dL (3.5-5.0); Alkaline Phosphatase 69 U/L (39-117); Anion Gap 10 (12-20); Aspartate Amino Transferase 18 U/L (5-37); Bilirubin Total 1.2 mg/dL (0.0-1.0); Blood Urea Nitrogen 22 mg/dL (9-16); Calcium 9.6 mg/dL (8.4-10.2); Carbon Dioxide 28 mmol/L (22-29); Chloride 106 mmol/L (96-108); Cholesterol 214 mg/dL (<200); Estimated Glomerular Filt Rate > 60; Glucose Fasting 112 mg/dL (60-99); HDL Cholesterol 37 mg/dL (>40); LDL Cholesterol Calculated 146 mg/dL (<100); Potassium 4.1 mmol/L (3.3-5.1); Sodium 140 mmol/L (135-145); Total Protein 7.1 g/dL (6.5-8.0); Triglycerides 159 mg/dL (<150)
== END 2023-05-25 10:49 | disposition home or self-care (01) ==
LOC: HO.LAB 10:48
PROVIDERS: PCP Internal Medicine; Visit Provider Internal Medicine
DX: M25.511 Pain in right shoulder (principal); M54.2 Cervicalgia; N28.9 Disorder of kidney and ureter, unspecified; D64.9 Anemia, unspecified; E78.5 Hyperlipidemia, unspecified
CPT/HCPCS: 36415; 72040; 73030; 80053; 80061; 85025

== ENCOUNTER → 2023-10-10 14:47 | Outpatient (BNVA) | payer SELFPAY | PROVIDERS: PCP Internal Medicine; Visit Provider Registered Nurse | DX: Z02.79 Encounter for issue of other medical certificate (principal) ==

== ENCOUNTER 2024-04-12 11:49 | Outpatient (REF) | payer OTHER, SELFPAY ==
[2024-04-12 12:58] LABS: MANUAL DIFF FLAG NO
[2024-04-12 13:14] LABS: Basophils Percent Auto 0.6 % (0-2); Eosinophils Absolute Auto 0.1 X10*3/uL (0.0-0.4); Eosinophils Percent Auto 2.6 % (0-4); Hematocrit 49.1 % (42.0-52.0); Hemoglobin 16.4 g/dl (14.0-18.0); Imm Gran Abs Auto 0.12 X10*3/uL (0.00-0.03); Imm Gran Pct Auto 2.2 % (0.0-0.4); Lymphocytes Absolute Auto 1.2 X10*3/uL (1.2-4.9); Lymphocytes Percent Auto 21.7 % (20-40); Mean Corpuscular HGB Conc 33.4 g/dl (31.0-36.0); Mean Corpuscular Hemoglobin 29.1 pg (27.0-33.0); Mean Corpuscular Volume 87.1 fL (80.0-98.0); Mean Platelet Volume 10.2 fL (9.4-12.4); Monocytes Absolute Auto 0.4 X10*3/uL (0.1-1.2); Neutrophils Absolute Auto 3.5 x10*3/uL (2.0-8.3); Neutrophils Percent Auto 64.9 % (45-73); Platelet Count 251 X10*3/uL (160-400); Red Blood Count 5.64 X10*6/uL (4.60-5.80); Red Cell Distribution Width 12.8 % (11.0-16.0); White Blood Count 5.4 X10*3/uL (4.8-10.8)
[2024-04-12 13:47] LABS: Alanine Aminotransferase 28 U/L (0-40); Albumin Level 4.6 g/dL (3.5-5.0); Alkaline Phosphatase 77 U/L (39-117); Anion Gap 9 (12-20); Aspartate Amino Transferase 23 U/L (5-37); Bilirubin Total 1.1 mg/dL (0.0-1.0); Blood Urea Nitrogen 16 mg/dL (9-16); Calcium 9.8 mg/dL (8.4-10.2); Carbon Dioxide 28 mmol/L (22-29); Chloride 109 mmol/L (96-108); Estimated Glomerular Filt Rate > 60; Glucose Fasting 106 mg/dL (60-99); Potassium 4.8 mmol/L (3.3-5.1); Sodium 141 mmol/L (135-145); Total Protein 7.9 g/dL (6.5-8.0)
[2024-04-12 14:35] LABS: Appearance Urine Clear; Color Urine Yellow; Glucose Urine UA Negative (Negative); Leukocyte Esterase Urine Negative (Negative); Nitrite Urine Negative (Negative); Urine Blood Negative (Negative); Urine Ketones Negative (Negative); Urine Protein Negative (Neg-Trace)
--- OUTSIDE RECORDS SUMMARY | 2024-04-12 15:57 | XMS_ITS ---
Author Organization [facility] Address [address] [place] [address] Care Team Providers Care Talend Etl Developer Name Role Phone Krish Medina Unavailable [phone] ALLERGIES, ADVERSE REACTIONS, ALERTS Substance Code Code System Type Reaction Severity Status Start Date End Date Aleve 758248 RxNorm Drug allergy () 0 MEDICATIONS Medication Code Code System Start Date Stop Date Route Dosage Directions Fill Instructions metoprolol succinate RxNorm 04/05/2024 benzonatate 343814 RxNorm 5 oral 1 PROBLEMS Problem Name Code Code System Start Date End Date Stat us Other heart disorders in dis eases classified elsewhere 95579268 [facility] Active Nasal congestion 76229793 [facility] 04/07/2024 Act irasema Other headache syndrome 449687075 [facility] 04/07/2024 Active Acute cough 31644493 [facility] 04/07/2024 Active Viral infection, unspecified 98047661 [facility] 04/07/2024 Active ENCOUNTERS Encounter Diagnosis Code Code System Date Stat us Nasal congestion 09513403 [facility] 04/07/2024 Active Other headache syndrome 754293328 [facility] 04/07/2024 A ctive Acute cough 76402566 [facility] 04/07/2024 Active Viral infection, unspecified 29326431 [facility] 04/07/19 Active IMMUNIZATIONS * None VITAL SIGNS Code Code System Vitals Name Date Value and Un its 8462-4 [facility] Blood Pressure-Diastolic 04/07/2024 88 mmHg 8480-6 [facility] Blood Pressure-Systolic 04/07/2024 1 45 mmHg 8867-4 [facility] Heart Rate 04/07/2024 61 /min 9279-1 [facility] Respiratory Rate 04/07/2024 16 /min 8310-5 Lo[facility] Body Temperature 04/07/2024 96.6 F 33778-3 [facility] Oxygen Saturation 04/07/2024 97 % SOCIAL HISTORY * None PROCEDURES * None MEDICAL EQUIPMENT * Patient has no history of implantable devices ASSESSMENT * None TREATMENT PLAN Type Description Date MEDICATION Take 100 mg capsule 04/07/2024 APPOINTMENT If not feeling roshan r in 3 day(s), please see your primary care physician. If you do not have a primary care physician, please return to this clinic. 04/07/2024 Lab Tests None GOALS * None HEALTH CONCERNS * No Health Concerns FUNCTIONAL AND COGNITIVE STATUS * None CONSULTATION NOTES * None DISCHARGE SUMMARY NOTES * None HISTORY AND PHYSICAL NOTES * Patient: MEL SOW, Sex: M (ID# [id number]) Date of : 1960 (63 years) Visit on 04/07/2024 (Log# [id number]) Historian: Self Triage Notes: Patient declined covid flu testing because he does not like things up his nose. History of Present Illness: Complaint: The patient presents with a chief complaint of headache of the head since Apr 02, 2024. It hasthe following quality: pressure. Context - Initial History: The patient reports it was not the result of an injury. The patient reports that the onset was: not associated with blunt force trauma; not associated with bright light; not associated with a change in medication; not associated with loud noise; not associated with a prolonged period of watching television; not associated with a recent illness; not associated with a recent procedure; not associated with strobing/flashing light. The patient also reports blurry vision, chills, congestion, cough, nasal discharge, sore throat, nasal congestion, and aches/pains as abnormal symptoms related to the complaint. Review of Systems: The patient complains of the following recent symptoms: Constitutional: chills Neurological: headache: See HPI Eyes: blurry vision ENT and Mouth: nasal congestion nasal discharge sore throat Respiratory: cough wheeze congestion Musculoskeletal: aches/pains The patient denies the following recent symptoms: ENT and Mouth: denies ear pain Allergies: Aleve: Drug allergy. Medications: metoprolol succinate: metoprolol succinate 50 mg Tablet, Extended Release 24 hr; Total Qty: 90 (ninety) Tablet; 0 refill(s); CATHY; Problem List: Other heart disorders in diseases classified elsewhere (status Active) Surgeries: Bone/Joint surgery: other surgery, specified as back, knee. Vitals: 11:15 AM (04/07/2024)Temperature: 96.6 ?F, Pulse: 61 BPM, BP: 145/88, Respirations: 16/min, O2 Saturation: 97%, O2 Delivery: RAFirst entered 04/07/2024 11:15 by Evelio Oropeza Physical Exam: The following exam elements were documented to be normal: Cardiovascular: S1, S2 noted, normal rate, regular rhythm, and no murmurs, rubs, gallop, or extra heart sounds. ENT: oropharynx and tonsils without swelling, erythema, lesion, exudate. ENT: tympanic membranes normal bilaterally. ENT: speaks in normal voice without hoarseness. General: well developed, well nourished, and in no apparent distress. Lymph: no cervical lymphadenopathy. Respiratory: breathing effort and rate are grossly normal, speaks in full sentences. Respiratory: no increased work of breathing. Respiratory: lungs clear to auscultation bilaterally with good air movement, no stridor, crackles, rubs, or wheezing. Diagnoses: Nasal congestion (R09.81) Other headache syndrome (G44.89) Acute cough (R05.1) Viral infection, unspecified (B34.9) Medication Orders: Prescribed: benzonatate 100 mg capsule; Take 1 capsule (oral) 3 times per day for 7 days (PRN - Cough); Total Qty: 21 (twenty-one) capsule; 0 refill(s); Substitutions allowed; Earliest Fill Date: 04/07/2024ePrescribed at 11:29 AM on 04/07/2024 by NESTOR Bragg-CPrescription sent to [facility]/pharmacy #[id number] (P: [phone] F: [phone]) [address] [place] [address], [address] Discharge Instructions: Nonallergic Rhinitis General Headache Without Cause Cough, Adult Plan: If not feeling better in 3 day(s), please see your primary care physician. If you do not have a primary care physician, please return to this clinic. Visit discharged at 04/07/2024 11:29:55 AM by Krish Medina PA-C Signed electronically by Krish Medina PA-C on 04/07/2024 11:29:55 AM IMAGING NOTES * None LABORATORY REPORT NARRATIVE NOTES * None PATHOLOGY REPORT NARRATIVE NOTES * None PROGRESS NOTES * None
--- OUTSIDE RECORDS SUMMARY | 2024-04-12 15:57 | XMS_ITS ---
Author Organization [facility] Address [address] [place] [address] Care Team Providers Care Senior Director Marketing Name Role Phone Krish Medina Unavailable [phone] ALLERGIES, ADVERSE REACTIONS, ALERTS Substance Code Code System Type Reaction Severity Status Start Date End Date Aleve 792776 RxNorm Drug allergy () 0 MEDICATIONS Medication Code Code System Start Date Stop Date Route Dosage Directions Fill Instructions metoprolol succinate RxNorm 04/05/2024 benzonatate 933615 RxNorm 5 oral 1 PROBLEMS Problem Name Code Code System Start Date End Date Stat us Other heart disorders in dis eases classified elsewhere 56850889 [facility] Active Nasal congestion 60927420 [facility] 04/07/2024 Act irasema Other headache syndrome 410032337 [facility] 04/07/2024 Active Acute cough 26263397 [facility] 04/07/2024 Active Viral infection, unspecified 33333805 [facility] 04/07/2024 Active ENCOUNTERS Encounter Diagnosis Code Code System Date Stat us Nasal congestion 02186000 [facility] 04/07/2024 Active Other headache syndrome 794177164 [facility] 04/07/2024 A ctive Acute cough 98777561 [facility] 04/07/2024 Active Viral infection, unspecified 22640251 [facility] 04/07/19 Active IMMUNIZATIONS * None VITAL SIGNS Code Code System Vitals Name Date Value and Un its 8462-4 [facility] Blood Pressure-Diastolic 04/07/2024 88 mmHg 8480-6 [facility] Blood Pressure-Systolic 04/07/2024 1 45 mmHg 8867-4 [facility] Heart Rate 04/07/2024 61 /min 9279-1 [facility] Respiratory Rate 04/07/2024 16 /min 8310-5 Loinc Body Temperature 04/07/2024 96.6 F 90303-3 [facility] Oxygen Saturation 04/07/2024 97 % SOCIAL [...] * Patient: MEL SOW, Sex: M (ID# [id number]) Date of : 1960 (63 years) Visit on 04/07/2024 (Log# [id number]) Historian: Self Triage Notes: Patient declined covid [...] on 04/07/2024 by NESTOR Bragg-CPrescription sent to [facility]/pharmacy #[id number] (P: [phone] F: [phone]) [address] [place] [address], [address] Discharge Instructions: Nonallergic Rhinitis General Headache Without [...]
== END 2024-04-12 11:50 | disposition home or self-care (01) ==
LOC: HO.LAB 11:49
PROVIDERS: PCP Internal Medicine; Visit Provider Physician Assistant Medical
DX: R10.9 Unspecified abdominal pain (principal)
CPT/HCPCS: 36415; 80053; 81003; 85025; 96127

== ENCOUNTER 2024-04-12 11:49 | Outpatient (AMB) | payer OTHER, SELFPAY ==
--- NOTE | 2024-04-12 12:00 | MHC.PC.OV ---
Vital Signs 04/12/24 12:01 Height 6 ft Weight 220 lb 8 oz BMI 29.9 BP 100/62 Blood Pressure Location Lt brachial Position Sitting Pulse 66 Pulse Source Pulse Oximeter Temp 97.1 F Temp Source Skin Pulse Oximetry (%) 97 Oxygen Delivery Method Room Air Intake Visit Reasons: Kidney pain Intake Note: Patient is here to follow up on left lower back pain with swelling ongoing for 4 days. 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 Accompanied by: Self / Same As Patient Allergies naproxen [Aleve] Allergy (Unknown, Verified 04/12/24 13:36) itchiness Medication List - Last Reconciled 04/12/24 by Arlyn Ch PA-C ibuprofen 600 mg PO Q6H metoprolol succinate ER 50 mg PO DAILY saw palmetto 160 mg PO BID valacyclovir 1,000 mg PO Q8H 7 days Tobacco use date assessed: 04/12/24 Dental Screening Dental Screen Date: 04/12/24 Did you have a dental visit in the last 12 months?: Yes Did you have a dental problem in the last 6 months where you did not have access to dental care?: No Was dental information given to patient?: Patient has dentist HPI Kidney pain HPI Details This is a 63-year-old male who is Dr. Unger's patient who is presenting for an urgent care visit due to left flank pain over the past few days. He reports he has noticed it has been present for quite some time although in the past few days it has been more persistent and noticeable. 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 He can not recall any specific injury that he injured his left flank or back. He is concerned that he may have a kidney stone. He denies any fevers, chills, nausea vomiting, recent falls or trauma, abdominal pain, radiation of the pain, hematuria, dysuria, abnormal penile discharge, black or bloody stools or any other symptoms complaints or concerns at this time. [facility] Medical History Obesity Hypertension Skin lesion Cluster headache CAD (coronary artery disease) PVC (premature ventricular contraction) Hyperlipidemia FRANCHESCA (obstructive sleep apnea) Surgical History Hx of cardiac catheterization History of laminectomy History of removal of cyst Family History Father Myocardial infarction Substance abuse Mother No problems noted. Social History Housing: House Alcohol intake: never Patient Tobacco Use Status: Never used Tobacco e-Cigarette/Vaping Use: Never Used Second Hand Smoke Exposure: No service: No Current occupational status: employed Cognitive needs: No Hearing needs: No Vision needs: No Questionnaire PHQ-9 Over the last 2 weeks, how often have you been bothered by any of the following problems? 1. Little interest or pleasure in doing things: not at all 2. Feeling down, depressed, or hopeless: not at all 3. Trouble falling or staying asleep, or sleeping too much: not at all 4. Feeling tired or having little energy: not at all 5. Poor appetite or overeating: not at all 6. Feeling bad about yourself - or that you are a failure or have let yourself or your family down: not at all 7. Trouble concentrating on things, such as reading the newspaper or watching television: not at all 8. Moving or speaking so slowly that other people could have noticed. Or the opposite - being so fidgety or restless that you have been moving around a lot more than usual: not at all 9. Thoughts that you would be better off or of hurting yourself in some way: not at all Total score: 0 Depression Screening Interpretation: Negative Depression Screening Done: Yes Source: Developed by Drs. Jorgito Rodgers, Liliana Medeiros, Manolo Lyn and colleagues, with an educational diego from [employer]. Thrive Questionnaire Date Thrive assessed: 04/12/24 I am a: Patient What is your living situation today?: I have a steady place to live Within the past 12 months, did the food you bought not last and you didn't have the money to get more?: Never true Within the past 12 months, did you worry whether your food would run out before you got money to buy more?: Never true Do you have trouble paying for medicines?: No Do you have trouble getting transportation to medical appointments?: No Do you have trouble paying your heating and electricity bill?: No Do you have trouble taking care of your child, family member or friend?: No Do you have trouble with day-to-day activities such as bathing, preparing meals, shopping, managing finances, etc.?: No Are you currently unemployed and looking for a job?: No Are you interested in more education?: No Please select the resources that you would like help with: None Currently or been in a relationship where the following occur: No concerns reported and I choose not to answer THRIVE Score: 0 AUDIT C Alcohol Use Questionnaire (AUDIT-C) 1. How often do you have a drink containing alcohol?: Never Total Score: 0 Score Reviewed/Action Taken: Yes (No action indicated ) NAZARIO-7 AMB Questionnaire NAZARIO-7 Date NAZARIO - 7 assessed: 04/12/24 Feeling nervous, anxious, or on edge: 0 = Not at all Not being able to stop or control worryin = Not at all Worrying too much about different things: 0 = Not at all Trouble relaxin = Not at all Being so restless that it is hard to sit still: 0 = Not at all Becoming easily annoyed or irritable: 0 = Not at all Feeling afraid as if something awful might happen: 0 = Not at all Total NAZARIO-7 score (0-4 normal; 5-9 mild; 10-14 moderate; 15-21 severe): 0 Source: Developed by Drs. Jorgito Rodgers, Liliana Medeiros, Manolo Lyn and colleagues, with an educational diego from [employer]. NAZARIO-7 Assessment Billing NAZARIO-7 Assessment Tool: NAZARIO-7 Assessment 29829 Review of Systems Const All systems reviewed & are unremarkable except as noted in HPI and below Physical exam (Primary Care) Vital Signs: Last Vital Signs Temp 97.1 F 04/12/24 12:01 Pulse 66 04/12/24 12:01 BP 100/62 04/12/24 12:01 Pulse Ox 97 04/12/24 12:01 Oxygen Delivery Method Room Air 04/12/24 12:01 Care Plan Goal for BP management: Blood pressure 110/62 at goal BMI result Body Mass Index 29.9 BMI Assessment/Plan discussion: High BMI High, discussed plan: lifestyle, weight reduction, dietary, physical activity and alcohol moderation Tobacco/Smoking Status: Tobacco use Status Tobacco use date assessed 04/12/24 04/12/24 12:05 Patient Tobacco Use Status Never used Tobacco 04/12/24 12:05 e-Cigarette/Vaping Use Never Used 04/12/24 12:05 PHQ-9: PHQ-9 Score PHQ-9: Total score 0 04/12/24 12:05 Depression Screening Interpretation: Negative Thrive Assessment: Date of Thrive Assessment Date Thrive assessed 04/12/24 04/12/24 12:05 Currently or been in a relationship where the following occur: No concerns reported and I choose not to answer Const Other: Appearance: Alert. Oriented X3. No acute distress. Head: Normal external exam. Normocephalic. Atraumatic. Eyes: Conjunctiva and sclera normal. Eyelids normal. ENT: MMM. Normal voice. Neck: Normal inspection. Neck supple. FROM. CVS: Normal heart rate and rhythm. Heart sound normal. Pulses normal throughout. No murmurs/rales/gallops. Respiratory: No respiratory distress. Painless inspiration. No accessory muscle usage noted or decreased air movement noted. Abdomen: Soft and nontender. Nondistended. No guarding. No rigidity. Bowel sounds normal in all 4 quadrants. No distention noted. No organomegaly noted. No visible injury noted. No rebound tenderness. Back: Full range of motion noted. No CVA tenderness is noted. Skin: Skin warm and dry. Normal skin color. Normal skin turgor. No rashes/lesions/lacerations noted. Extremities: No calf tenderness is noted. Extremities exhibit normal range of motion and nontender. Neuro: Oriented X 3. Moving all extremities. Normal steady gait. No focal neuro deficits noted. Vascular: + radial pulses b/l. Normal cap refill. No cyanosis noted. Coding Level of Care Code Est Pt Level 4 (19389) Complex EM visit Add On G2211 Diagnoses Left flank pain R10.9 Additional Codes NAZARIO-7 Assessment Billing - NAZARIO-7 Assessment Tool: NAZARIO-7 Assessment 99897 ([id number]) Assessment & Plan Assessment & Plan (1) Left flank pain: Code(s): R10.9 - Unspecified abdominal pain Category: Medical Plan: Patient presenting with left flank pain. No abdominal pain on exam. No CVA tenderness on exam. Concerned for TED, kidney stones, UTI versus muscle strain. CBC, CMP and dry CT for kidney stones ordered at this time along with a UA. Patient was not interested in any medications at this time for pain control. Will continue to monitor. Plan 1. Outpatient labs ordered along with UA and a dry CT to evaluate for possible kidney stone 2. Patient to return in 1-2 weeks to evaluate labs and imaging ordered at this time 3. Patient to also make follow-up appointment with primary care provider Dr. Unger Orders: Orders CT kidney stone Today R10.9 - Unspecified abdominal pain Complete Blood Count Auto Diff Today R10.9 - Unspecified abdominal pain UA CC w/rflx Micro + Cult Today R10.9 - Unspecified abdominal pain Comprehensive [place]. Panel Fast Today R10.9 - Unspecified abdominal pain
[2024-04-12 12:01] VITALS: BP 100/62; PULSE 66; TEMP 36.2; O2SAT 97; BMI 29.9
== END 2024-04-12 12:27 | disposition home or self-care (01) ==
PROVIDERS: PCP Internal Medicine; Visit Provider Physician Assistant Medical
DX: R10.9 Unspecified abdominal pain (principal)

== ENCOUNTER 2024-04-18 16:39 | Outpatient (REF) | payer OTHER, SELFPAY ==
--- NOTE | ~2024-04-18 | CT_ITS ---
CLINICAL HISTORY: R10.9 - Unspecified abdominal pain CT abdomen and pelvis without contrast Comparison: None Findings: The lung bases are clear. Unremarkable gallbladder and solid organs. No urolithiasis. No bowel obstruction, pneumoperitoneum, or pneumatosis. Small left inguinal hernia containing fat. Pelvic contents are otherwise unremarkable. The appendix is normal. The bones are intact. IMPRESSION: No urolithiasis or hydronephrosis. This document has been electronically signed by: Crystal Sheldon MD on 04/18/2024 17:40:08
[2024-04-18 17:26] LABS: Estimated Average Glucose 134 mg/dL; Hemoglobin A1C 188.7665 umol/L; Hemoglobin A1c % 6.3 % (<6.0); Total Hemoglobin (HGBA1C) 4126.1025 umol/L
--- OUTSIDE RECORDS SUMMARY | 2024-04-18 18:21 | XMS_ITS | Patient Health Record ---
Author Organization [facility] Address [address] [place] [address] Care Team Providers Care Supervisor Speech Name Role Phone Ute TAYLOR, José Primary Care Provider Kayliea Jorgito Wu Unavailable [phone] REASON FOR REFERRAL No Information SOCIAL HISTORY Sex Assigned At : Social History Observation Description Sex Assigned At Unknown Encounters Encounter Location Date Provider Diagnosis [facility] [address] [place] [phone] 09/21/2023 Jorgito Alfonso [facility] [address] [place] [address] 09/21/2023 Jorgito Alfonso [facility] [address] [place] [phone] 09/22/2023 Jorgito Alfonso [facility] [address] [place] [phone] 09/22/2023 Jorgito Alfonso [facility] [address] [place] [address] 09/22/2023 Jorgito Alfonso [facility] [address] [place] [address] 11/24/2023 Jorgito Alfonso PLAN OF TREATMENT No Information Insurance Providers Payer Name Payer Address Payer Phone Subscriber Number Group Number Insured Name Patient Relationship to Insured Coverage Start Date Coverage End Date [employer] [id number] [place] [address] [id number] MEL SOW Self - patient is the insured
--- OUTSIDE RECORDS SUMMARY | 2024-04-18 18:21 | XMS_ITS ---
Author Organization [facility] Address [address] [place] [address] Care Team Providers Care Ingredient Scaler Name Role Phone Krish Medina Unavailable [phone] ALLERGIES, ADVERSE REACTIONS, ALERTS Substance Code Code System Type Reaction Severity Status Start Date End Date Aleve 747690 RxNorm Drug allergy () 0 MEDICATIONS Medication Code Code System Start Date Stop Date Route Dosage Directions Fill Instructions metoprolol succinate RxNorm 04/05/2024 benzonatate 572347 RxNorm 5 oral 1 PROBLEMS Problem Name Code Code System Start Date End Date Stat us Other heart disorders in dis eases classified elsewhere 32687943 [facility] Active Nasal congestion 30594128 [facility] 04/07/2024 Act irasema Other headache syndrome 665013091 [facility] 04/07/2024 Active Acute cough 68549666 [facility] 04/07/2024 Active Viral infection, unspecified 21478445 [facility] 04/07/2024 Active ENCOUNTERS Encounter Diagnosis Code Code System Date Stat us Nasal congestion 10677160 [facility] 04/07/2024 Active Other headache syndrome 089077919 [facility] 04/07/2024 A ctive Acute cough 96144388 [facility] 04/07/2024 Active Viral infection, unspecified 71633973 [facility] 04/07/19 Active IMMUNIZATIONS * None VITAL SIGNS Code Code System Vitals Name Date Value and Un its 8462-4 Lo[facility] Blood Pressure-Diastolic 04/07/2024 88 mmHg 8480-6 Loinc Blood Pressure-Systolic 04/07/2024 1 45 mmHg 8867-4 [facility] Heart Rate 04/07/2024 61 /min 9279-1 Loinc Respiratory Rate 04/07/2024 16 /min 8310-5 Loinc Body Temperature 04/07/2024 96.6 F 96665-3 [facility] Oxygen Saturation 04/07/2024 97 % SOCIAL [...] * Patient: MEL SOW, Sex: M (ID# [id number]) Date of : 1960 (63 years) Visit on 04/07/2024 (Log# [id number]) Historian: Self Triage Notes: Patient declined covid [...] on 04/07/2024 by NESTOR Bragg-CPrescription sent to [facility]/pharmacy #[id number] (P: [phone] F: [phone]) [address] [place] [address], [address] Discharge Instructions: Nonallergic Rhinitis General Headache Without [...]
--- OUTSIDE RECORDS SUMMARY | 2024-04-18 18:21 | XMS_ITS | Clinical Summary ---
Author Organization [facility] Address [address] [place] [address] Care Team Providers Care Tradeshow Worker Name Role Phone Unavailable Primary Care Provider Unavailabl e Social History Tobacco Use Types Packs/Day Years Used Date Smoking Tobacco: Never Assessed Sex and Gender Information Value Date Recorded Sex Assigned at Not on file Gender Identity Not on file Sexual Orientation Not on file Plan of Treatment Health Maintenance Due Date Last Done Comments DTaP,Tdap,and Td Vaccines (1 - Tdap) 1981 Zoster Vaccines (1 of 2) 2012 Cholesterol Screening (Lipid Panel) 02/28/2022 Colorectal Cancer Screening: Colonoscopy 02/28/2022 Depression Screening 02/28/2022 HIV Screening 02/28/2022 Hepatitis C Screening 02/28/2022 Social Influencers of Health Screening 02/28/2022 COVID-19 Vaccine ( - 2023-2 5 season) 2023 Influenza Vaccine (#1) 2023 RSV Immunization Patients 60 + Years Old (1 - 1-dose 75+ series) 2037 HIB Vaccines Aged Out No longer eligi ble based on patient's age to complete this topic HPV Vaccines Aged Out No longer eligi ble based on patient's age to complete this topic Hepatitis A Vaccines Aged Out No long er eligible based on patient's age to complete this topic Hepatitis B Vaccines Aged Out No long er eligible based on patient's age to complete this topic IPV Vaccines Aged Out No longer eligi ble based on patient's age to complete this topic MMR Vaccines Aged Out No longer eligi ble based on patient's age to complete this topic Meningococcal ACWY Vaccine Aged Out N o longer eligible based on patient's age to complete this topic Pneumococcal Vaccine: Pediat rics (0 to 5 Years) and At-Risk Patients (6 to 64 Years) Aged Out No longer eligible b ased on patient's age to complete this topic RSV Immunization Patients Un madiha 20 months Aged Out No longer eligible b ased on patient's age to complete this topic Varicella Vaccines Aged Out No longer eligible based on patient's age to complete this topic
--- OUTSIDE RECORDS SUMMARY | 2024-04-18 18:21 | XMS_ITS ---
Author Organization [facility] Address [address] [place] [address] Care Team Providers Care Mechanical Design Engineer Facilities Name Role Phone José Unger MD Primary Care Provider Jorgito Jones Unavailable [phone] Encounters Encounter Location Date Provider Diagnosis [facility] [address] [place] [phone] 09/22/2023 Jorgito Alfonso PLAN OF TREATMENT No Information
--- OUTSIDE RECORDS SUMMARY | 2024-04-18 18:21 | XMS_ITS ---
Author Organization [facility] Address [address] [place] [address] Care Team Providers Care Prospecting Driller Helper Name Role Phone José Unger MD Primary Care Provider Unavaila Jorgito Wu [phone] REASON FOR VISIT refund check issued Encounters Encounter Location Date Provider Diagnosis [facility] [address] [place] [address] 09/22/2023 Jorgito Alfonso PLAN OF TREATMENT No Information
--- OUTSIDE RECORDS SUMMARY | 2024-04-18 18:21 | XMS_ITS ---
Author Organization [facility] Address [address] [place] [address] Care Team Providers Care Director Clinical Applications Name Role Phone Krish Medina Unavailable [phone] ALLERGIES, ADVERSE REACTIONS, ALERTS Substance Code Code System Type Reaction Severity Status Start Date End Date Aleve 407856 RxNorm Drug allergy () 0 MEDICATIONS Medication Code Code System Start Date Stop Date Route Dosage Directions Fill Instructions metoprolol succinate RxNorm 04/05/2024 benzonatate 626657 RxNorm 5 oral 1 PROBLEMS Problem Name Code Code System Start Date End Date Stat us Other heart disorders in dis eases classified elsewhere 35050851 Snomed[facility] Active Nasal congestion 23015329 [facility] 04/07/2024 Act irasema Other headache syndrome 896864171 [facility]omed[facility] 04/07/2024 Active Acute cough 82662671 [facility] 04/07/2024 Active Viral infection, unspecified 50438931 [facility] 04/07/2024 Active ENCOUNTERS Encounter Diagnosis Code Code System Date Stat us Nasal congestion 38862492 [facility] 04/07/2024 Active Other headache syndrome 266899619 [facility] 04/07/2024 A ctive Acute cough 92198980 [facility] 04/07/2024 Active Viral infection, unspecified 38759795 [facility] 04/07/19 Active IMMUNIZATIONS * None VITAL SIGNS Code Code System Vitals Name Date Value and Un its 8462-4 Loinc Blood Pressure-Diastolic 04/07/2024 88 mmHg 8480-6 Loinc Blood Pressure-Systolic 04/07/2024 1 45 mmHg 8867-4 Loinc Heart Rate 04/07/2024 61 /min 9279-1 Loinc Respiratory Rate 04/07/2024 16 /min 8310-5 Loinc Body Temperature 04/07/2024 96.6 F 74613-2 Loinc Oxygen Saturation 04/07/2024 97 % SOCIAL [...] * Patient: MEL SOW, Sex: M (ID# [id number]) Date of : 1960 (63 years) Visit on 04/07/2024 (Log# [id number]) Historian: Self Triage Notes: Patient declined covid [...] on 04/07/2024 by NESTOR Bragg-CPrescription sent to [facility]/pharmacy #[id number] (P: [phone] F: [phone]) [address] [place] [address], [address] Discharge Instructions: Nonallergic Rhinitis General Headache Without [...]
--- OUTSIDE RECORDS SUMMARY | 2024-04-18 18:21 | XMS_ITS ---
Author Organization [facility] Address [address] [place] [address] Care Team Providers Care Java User Interface Developer Name Role Phone José Unger MD Primary Care Provider Unavaila Jorgito Wu [phone] REASON FOR VISIT please lock 09-21-2023 office note Encounters Encounter Location Date Provider Diagnosis [facility] [address] [place] [address] 11/24/2023 Jorgito Alfonso PLAN OF TREATMENT No Information
== END 2024-04-18 16:40 | disposition home or self-care (01) ==
LOC: HO.CT 16:39
PROVIDERS: PCP Internal Medicine; Visit Provider Physician Assistant Medical
DX: R10.9 Unspecified abdominal pain (principal); R73.09 Other abnormal glucose
CPT/HCPCS: 36415; 74176; 83036

== ENCOUNTER → 2024-04-18 16:50 | Outpatient (BNV) | payer OTHER, SELFPAY | PROVIDERS: PCP Internal Medicine; Visit Provider Radiology Diagnostic Radiology | DX: R10.9 Unspecified abdominal pain (principal) | CPT/HCPCS: 74176 ==

== ENCOUNTER 2024-04-30 15:09 | Outpatient (AMB) | payer OTHER, SELFPAY ==
[2024-04-30 15:16] VITALS: BP 122/80; PULSE 62; BMI 31.2
--- NOTE | 2024-04-30 15:16 | MHC.OFFVIS ---
Vital Signs 04/30/24 15:16 Height 6 ft Weight 230 lb 2.601 oz BMI 31.2 BP 122/80 Blood Pressure Location Lt brachial Position Sitting Pulse 62 Pulse Source Monitor Intake Visit Reasons: followup refill Contracting Engineer Required: No Allergies naproxen [Aleve] Allergy (Unknown, Verified 04/30/24 15:17) itchiness Medication List - Last Reconciled 04/30/24 by Mecca Bowser, LOIN TRIMMER-C ibuprofen 600 mg PO Q6H metoprolol succinate ER 50 mg PO DAILY HPI HPI followup refill: Details: Marcin is a 63-year-old male with past medical history of hypertension, heart palpitations with PACs and PVCs on Holter, obstructive sleep apnea, nonobstructive CAD who presents for follow-up. His last prior visit to our office was 08/16/2022. Today he states that he has been doing well overall. He will feel an occasional heart palpitation but they are much less than what he had previously reported. He takes his metoprolol daily. He has been compliant with his CPAP mask each night. No concerning chest discomfort at rest or with activity. No shortness of breath, PND, orthopnea or edema. No lightheadedness, presyncope, syncope. He goes to the gym routinely and does cardio and weight training. He is currently laid off from work. [facility] Medical History Obesity Hypertension Skin lesion Cluster headache CAD (coronary artery disease) PVC (premature ventricular contraction) Hyperlipidemia FRANCHESCA (obstructive sleep apnea) Surgical History Hx of cardiac catheterization History of laminectomy History of removal of cyst Family History Father Myocardial infarction Substance abuse Mother No problems noted. Social History Housing: House Alcohol intake: never Patient Tobacco Use Status: Never used Tobacco e-Cigarette/Vaping Use: Never Used Second Hand Smoke Exposure: No service: No Current occupational status: employed Cognitive needs: No Hearing needs: No Vision needs: No Review of Systems Const All systems reviewed & are unremarkable except as noted in HPI and below ENT Denies dizziness Card Denies chest pain, Denies chest pain at rest, Denies chest pain with activity, Denies rapid heart rate, Denies pedal edema, Denies edema, Denies leg edema, Denies lightheadedness, Denies palpitations, Denies dyspnea, Denies dyspnea on exertion and Denies orthopnea Resp Denies cough, Denies dyspnea and Denies dyspnea on exertion GI Denies hematochezia and Denies change in stool character Musc Denies abnormal gait, Denies limited range of motion, Denies muscle cramps, Denies muscle weakness, Denies numbness, Denies radiating pain into limb, Denies stiffness and Denies tingling Neuro Denies abnormal gait, Denies dizziness, Denies numbness and Denies tingling Endo Denies palpitations Physical Exam Vital Signs: Last Vital Signs Pulse 62 04/30/24 15:16 BP 122/80 04/30/24 15:16 BMI result Body Mass Index 31.2 Const General: cooperative, healthy appearing, comfortable and no acute distress Orientation/consciousness: patient oriented x3 Neck Neck: Yes normal visual inspection and Yes no JVD Resp Effort & Inspection: normal respiratory effort Auscultation: clear to auscultation bilaterally, no rales, no rhonchi and no wheezes Cardio Jugular venous distension: no JVD Rate: regular rate Rhythm: regular rhythm Heart sounds: S1 normal heart sound present, S2 normal heart sound present, no murmurs and no rubs Neuro General: patient oriented x3 Extrem General: Yes normal to inspection and No no pedal edema Psych Appearance: grossly normal Mental Status: mental status grossly normal Speech and movement: Normal speech and movement present Office Procedures EKG Details: Today, read by me, normal sinus rhythm, no acute ST or T-wave abnormalities, rate 62, QTC 406 milliseconds [id number], Complete Assessment & Plan Assessment & Plan (1) Palpitations: Code(s): R00.2 - Palpitations Category: Medical Plan: History of heart palpitations with prior evaluations finding PACs and PVCs. Prior to last visit he was reporting increasing heart palpitations. He did undergo a repeat of his cardiac testing. A Holter monitor was done 08/24/2022 for 3 days showing normal sinus rhythm, rate 66, frequent PVCs 1.25%. An echocardiogram was done 09/21/2022 showing EF 65%, inferior septal, basal inferior and basal anterior septal segments hypokinetic, mild aortic regurgitation. This led to an exercise nuclear stress test on 10/18/2022 with exercise 11 minutes, chest heaviness and mild shortness of breath, downsloping ST depressions , with nuclear imaging showing a fixed basal inferior defect, can not exclude diaphragm attenuation artifact, probable ischemia in the distal anterior wall. He then had a CTA of the coronary arteries on 03/16/2023 showing no evidence of hemodynamically significant coronary artery disease, mild calcified and noncalcified plaque in the LAD, less than 25% stenosis, mild plaque in the circumflex and RCA with minimal to less than 25% stenosis. EKG done today showing normal sinus rhythm, rate 62. For his palpitations he has been on metoprolol XL 50 mg daily. Today he reports palpitations have been well controlled. He is exercising routinely and very compliant with his CPAP mask. Continue current management. Cardiology follow-up 2 years, sooner if needed (2) PAC (premature atrial contraction): Code(s): I49.1 - Atrial premature depolarization Category: Medical (3) PVC (premature ventricular contraction): Code(s): I49.3 - Ventricular premature depolarization Category: Medical (4) CAD (coronary artery disease): Code(s): I25.10 - Atherosclerotic heart disease of [place] coronary artery without angina pectoris Category: Medical Plan: Finding of minimal to mild CAD on CTA of the coronary arteries as above. He has no anginal symptoms. He needs ongoing risk factor modification. No activity restrictions at this time. Will arrange for an updated fasting lipid profile. Continue metoprolol. (5) Hyperlipidemia: Code(s): E78.5 - Hyperlipidemia, unspecified Category: Medical Plan: He[place]rick LDL goal less than 70 in patient with known mild CAD. Labs done 01/23/2024 showed LDL 146. Will enter orders for an updated lipid profile to be done in the near future. I had discussed statin use with him and he is reluctant. He does not want to take any new medications. Plan Time spent on chart review, documentation, interview and assessment Orders: Orders Lipid Panel Today I25.10 - Atherosclerotic heart disease of [place] coronary artery without angina pectoris Coding Level of Care Code Est Pt Level 4 (41299) Complex EM visit Add On G2211 Diagnoses Palpitations R00.2 PAC (premature atrial contraction) I49.1 PVC (premature ventricular contraction) I49.3 CAD (coronary artery disease) I25.10 Hyperlipidemia E78.5 CPT Codes EKG - CPT: 85165-[id number], Complete ([id number]) Time Spent (min) 28
--- OUTSIDE RECORDS SUMMARY | 2024-04-30 16:38 | XMS_ITS | Clinical Summary ---
Author Organization [facility] Address [address] [place] [address] Care Team Providers Care Roller Coaster Designer Name Role Phone Unavailable Primary Care Provider [...]
--- OUTSIDE RECORDS SUMMARY | 2024-04-30 16:38 | XMS_ITS ---
Author Organization [facility] Address [address] [place] [address] Care Team Providers Care Umbrella Frame Maker Name Role Phone Krish Medina Unavailable [phone] ALLERGIES, ADVERSE REACTIONS, ALERTS Substance Code Code System Type Reaction Severity Status Start Date End Date Aleve 855107 RxNorm Drug allergy () 0 MEDICATIONS Medication Code Code System Start Date Stop Date Route Dosage Directions Fill Instructions metoprolol succinate RxNorm 04/05/2024 benzonatate 934207 RxNorm 5 oral 1 PROBLEMS Problem Name Code Code System Start Date End Date Stat us Other heart disorders in dis eases classified elsewhere 60962166 [facility] Active Nasal congestion 68075785 [facility] 04/07/2024 Act irasema Other headache syndrome 359434998 [facility] 04/07/2024 Active Acute cough 38174867 [facility] 04/07/2024 Active Viral infection, unspecified 49733668 [facility] 04/07/2024 Active ENCOUNTERS Encounter Diagnosis Code Code System Date Stat us Nasal congestion 55269449 [facility] 04/07/2024 Active Other headache syndrome 427470840 [facility] 04/07/2024 A ctive Acute cough 16564701 [facility] 04/07/2024 Active Viral infection, unspecified 82433482 [facility] 04/07/19 Active IMMUNIZATIONS * None VITAL SIGNS Code Code System Vitals Name Date Value and Un its 8462-4 [facility] Blood Pressure-Diastolic 04/07/2024 88 mmHg 8480-6 [facility] Blood Pressure-Systolic 04/07/2024 1 45 mmHg 8867-4 [facility] Heart Rate 04/07/2024 61 /min 9279-1 [facility] Respiratory Rate 04/07/2024 16 /min 8310-5 [facility] Body Temperature 04/07/2024 96.6 F 33865-6 [facility] Oxygen Saturation 04/07/2024 97 % SOCIAL [...] * Patient: MEL SOW, Sex: M (ID# [id number]) Date of : 1960 (63 years) Visit on 04/07/2024 (Log# [id number]) Historian: Self Triage Notes: Patient declined covid [...] on 04/07/2024 by NESTOR Bragg-CPrescription sent to [facility]/pharmacy #[id number] (P: [phone] F: [phone]) [address] [place] [address], [id number] Discharge Instructions: Nonallergic Rhinitis General Headache Without Cause Cough, Adult Plan: If not feeling better in 3 day(s), please see your primary care physician. If you do not have a primary care physician, please return to this clinic. Visit discharged at 04/07/2024 11:29:55 AM by Krish Medina PA-C Signed electronically by Krihs Medina PA-C on 04/07/2024 11:29:55 AM IMAGING NOTES * None LABORATORY REPORT NARRATIVE NOTES * None PATHOLOGY REPORT NARRATIVE NOTES * None PROGRESS NOTES * None
== END 2024-04-30 15:48 | disposition home or self-care (01) ==
PROVIDERS: PCP Internal Medicine; Visit Provider Nurse Practitioner Family
DX: R00.2 Palpitations (principal); I49.1 Atrial premature depolarization; I49.3 Ventricular premature depolarization; I25.10 Atherosclerotic heart disease of native coronary artery without angina pectoris; E78.5 Hyperlipidemia, unspecified
CPT/HCPCS: 93010; 99214

== ENCOUNTER → 2024-04-30 15:09 | Outpatient (BNVA) | payer OTHER, SELFPAY | PROVIDERS: PCP Internal Medicine; Visit Provider Nurse Practitioner Family | DX: I10 Essential (primary) hypertension (principal); I25.10 Atherosclerotic heart disease of native coronary artery without angina pectoris; I49.1 Atrial premature depolarization; I49.3 Ventricular premature depolarization; R00.2 Palpitations; E78.5 Hyperlipidemia, unspecified; G47.33 Obstructive sleep apnea (adult) (pediatric); Z99.89 Dependence on other enabling machines and devices | CPT/HCPCS: 93005 ==

== ENCOUNTER 2024-05-22 09:45 | Outpatient (REF) | payer OTHER, SELFPAY ==
[2024-05-22 10:51] LABS: Cholesterol 212 mg/dL (<200); HDL Cholesterol 39 mg/dL (>40); LDL Cholesterol Calculated 136 mg/dL (<100); Triglycerides 186 mg/dL (<150)
--- OUTSIDE RECORDS SUMMARY | 2024-05-22 11:07 | XMS_ITS | Clinical Summary ---
Author Organization [facility] it Address [address] [place] [address] Care Team Providers Care Streets And Buildings Decorator Name Role Phone Unavailable Primary Care Provider Unavailabl e Social History Tobacco Use Types Packs/Day Years Used Date Smoking Tobacco: Never Assessed Sex and Gender Information Value Date Recorded Sex Assigned at Not on file Legal Sex Male 12:25 AM EST Gender Identity Not on file Sexual Orientation Not on file Plan of Treatment Health Maintenance Due Date Last Done Comments DTaP,Tdap,and Td Vaccines (1 - Tdap) 1981 Pneumococcal Vaccine: 50+ Ye ars (1 of 1 - PCV) 2012 Zoster Vaccines (1 of 2) 2012 Cholesterol Screening (Lipid Panel) 02/28/2022 Colorectal Cancer Screening: Colonoscopy 02/28/2022 Depression Screening 02/28/2022 HIV Screening 02/28/2022 Hepatitis C Screening 02/28/2022 Social Influencers of Health Screening 02/28/2022 COVID-19 Vaccine (1 - 2023-2 5 season) 2023 Influenza Vaccine [...] patient's age to complete this topic Meningococcal B Vacine Aged Out No lo nger eligible based on patient's age to complete [...]
== END 2024-05-22 09:46 | disposition home or self-care (01) ==
LOC: HO.LAB 09:45
PROVIDERS: PCP Internal Medicine; Visit Provider Nurse Practitioner Family
DX: I25.10 Atherosclerotic heart disease of native coronary artery without angina pectoris (principal)
CPT/HCPCS: 36415; 80061

== ENCOUNTER 2024-05-25 13:49 | Outpatient (AMB) | payer OTHER, SELFPAY ==
--- NOTE | 2024-05-25 13:51 | MHC.PC.OV ---
Vital Signs 05/25/24 13:52 Height 6 ft Weight 227 lb 6 oz BMI 30.8 BP 130/80 Blood Pressure Location Lt brachial Position Sitting Pulse 81 Pulse Source Pulse Oximeter Temp 96.9 F Temp Source Temporal Artery Scan Pulse Oximetry (%) 97 Oxygen Delivery Method Room Air Intake Visit Reasons: Annual Exam Intake Note: Patient is here today for a physical. Black Oxide Operator Required: No Supervisor Insulation: Not Required per policy Accompanied by: Self / Same As Patient Allergies naproxen [Aleve] Allergy (Unknown, Verified 05/25/24 13:52) itchiness Tobacco use date assessed: 05/25/24 Dental Screening Dental Screen Date: 04/12/24 HPI Annual Exam HPI Details HTN on Rx; doing well and compliant [facility] Medical History Obesity Hypertension Skin lesion Cluster headache CAD (coronary artery disease) PVC (premature ventricular contraction) Hyperlipidemia FRANCHESCA (obstructive sleep apnea) Surgical History Hx of cardiac catheterization History of laminectomy History of removal of cyst Family History Father Myocardial infarction Substance abuse Mother No problems noted. Social History Housing: House Alcohol intake: never Patient Tobacco Use Status: Never used Tobacco e-Cigarette/Vaping Use: Never Used Second Hand Smoke Exposure: No service: No Current occupational status: employed Cognitive needs: No Hearing needs: No Vision needs: No Questionnaire Thrive Questionnaire Date Thrive assessed: 04/12/24 NAZARIO-7 AMB Questionnaire NAZARIO-7 Date NAZARIO - 7 assessed: 04/12/24 Source: Developed by Drs. Jorgito Rodgers, Liliana Medeiros, Manolo Lyn and colleagues, with an educational diego from [employer]. Review of Systems Const Denies chills, Denies fatigue, Denies headache(s) and Denies weight loss Eyes Denies change in vision, Denies diplopia and Denies eye pain ENT Denies vertigo, Denies dizziness, Denies headache(s) and Denies nasal discharge Card Denies chest pain, Denies rapid heart rate and Denies dyspnea on exertion Resp Denies chest congestion, Denies cough, Denies pain with cough and Denies dyspnea on exertion GI Denies abdominal pain, Denies hematochezia and Denies change in bowel habits Musc Denies myalgias, Denies arthralgias and Denies joint swelling Skin/Breast Denies lesions and Denies unusual bruising Neuro Denies vertigo, Denies dizziness, Denies headache(s) and Denies focal weakness Endo Denies fatigue Physical exam (Primary Care) Vital Signs: Last Vital Signs Temp 96.9 F 05/25/24 13:52 Pulse 81 05/25/24 13:52 BP 130/80 05/25/24 13:52 Pulse Ox 97 05/25/24 13:52 Oxygen Delivery Method Room Air 05/25/24 13:52 BMI result Body Mass Index 30.8 Tobacco/Smoking Status: Tobacco use Status Tobacco use date assessed 05/25/24 05/25/24 13:56 Patient Tobacco Use Status Never used Tobacco 05/25/24 13:56 e-Cigarette/Vaping Use Never Used 05/25/24 13:56 Thrive Assessment: Date of Thrive Assessment Date Thrive assessed 04/12/24 05/25/24 13:56 Const General: cooperative, healthy appearing and no acute distress Orientation/consciousness: oriented to person, oriented to place and oriented to time [facility] Head: Yes normal to inspection, Yes normocephalic and Yes atraumatic Mouth: Normal oral and palatal mucosa present and tongue normal Throat: Yes posterior oropharynx normal and Yes uvula midline Eyes General: appearance normal, both eyes and all related structures Neck Neck: Yes normal visual inspection, Yes full ROM and Yes no lymphadenopathy Thyroid: Thyroid normal Carotids: normal carotid upstroke Chest Chest palpation & inspection: normal inspection of the chest Resp Effort & Inspection: normal respiratory effort and able to speak in complete sentences Auscultation: clear to auscultation bilaterally Cardio Jugular venous distension: no JVD Palpation: normal PMI Rate: regular rate Rhythm: regular rhythm Heart sounds: S1 normal heart sound present and S2 normal heart sound present GI Inspection: Yes normal to inspection Palpation (GI): Soft to palpation and No hepatosplenomegaly present Auscultation: normal bowel sounds General: Yes no CVA tenderness Back/Spine/Pelvis Back: no CVA tenderness Skin General skin exam: no rashes or lesions noted Neuro General: oriented to person, oriented to place and oriented to time Extrem General: Yes normal to inspection and Yes full ROM Coding Level of Care Code Est Pt Prev Care 40-64y(27526) Diagnoses Physical exam Z00.00 Hypertension I10 Obstructive sleep apnea G47.33 Assessment & Plan Assessment & Plan (1) Physical exam: Code(s): Z00.00 - Encounter for general adult medical examination without abnormal findings Category: Medical Plan: stable; do labs (2) Hypertension: Code(s): I10 - Essential (primary) hypertension Category: Medical Plan: stable; same rx (3) Obstructive sleep apnea: Code(s): G47.33 - Obstructive sleep apnea (adult) (pediatric) Category: Medical Plan: cont cpap
[2024-05-25 13:52] VITALS: BP 130/80; PULSE 81; TEMP 36.1; O2SAT 97; BMI 30.8
--- OUTSIDE RECORDS SUMMARY | 2024-05-25 15:57 | XMS_ITS | Clinical Summary ---
Author Organization [facility] it Address [address] [place] [address] Care Team Providers Care Planning Supervisor Name Role Phone Unavailable Primary Care Provider [...]
== END 2024-05-25 14:12 | disposition home or self-care (01) ==
PROVIDERS: PCP Internal Medicine; Visit Provider Internal Medicine
DX: Z00.00 Encounter for general adult medical examination without abnormal findings (principal); I10 Essential (primary) hypertension; G47.33 Obstructive sleep apnea (adult) (pediatric)

== ENCOUNTER → 2024-05-25 13:49 | Outpatient (BNVA) | payer OTHER, SELFPAY | PROVIDERS: PCP Internal Medicine; Visit Provider Internal Medicine ==

== ENCOUNTER → 2024-10-10 14:42 | Outpatient (BNVA) | payer SELFPAY | PROVIDERS: PCP Internal Medicine; Visit Provider Physician Assistant Medical | DX: Z02.79 Encounter for issue of other medical certificate (principal) ==